=== PATIENT | female | born 1945 | race Caucasian/White ===

== ENCOUNTER → 2017-06-11 16:00 | Outpatient (CLI) | payer MEDICARE, SELFPAY | PROVIDERS: Family Provider Internal Medicine; PCP Internal Medicine; Visit Provider Internal Medicine | DX: R22.41 Localized swelling, mass and lump, right lower limb (principal); R39.15 Urgency of urination | CPT/HCPCS: 93971 ==

== ENCOUNTER → 2017-10-11 07:23 | Outpatient (CLI) | payer OTHER, SELFPAY ==
--- NOTE | 2017-10-11 07:27 | CT_ITS ---
STUDY: CT CHEST WITH CONTRAST REASON FOR EXAM: Female, 72 years old. History of lung mass. Adnexal mass. RADIATION DOSAGE (If Supplied By Facility): CTDIvol = ( 25.09 ) mGy, DLP = ( 784.65 ) mGycm TECHNIQUE: Transaxial imaging was performed following intravenous administration of 100 ml of Isovue 300 contrast material. Multiplanar coronal and sagittal images were reformatted. Individualized dose optimization techniques were used for this CT. COMPARISON: Comparison is made with prior study dated March 28, 2017. FINDINGS: Minimal degree of dependent bibasilar atelectasis. Stable 5 mm nodule in the right lower lobe adjacent to the major fissure on axial image #52. This is also evidence of a 3 mm noncalcified nodule in the lateral aspect of the right upper lobe as seen on axial image #55. Stable 6 mm nodule in the super segment of the left lower lobe as seen on axial image #39. There is no demonstrated pleural abnormality. Normal heart and pericardium. There are multiple small lymph nodes within the mediastinum, which are normal in size and morphology most compatible with reactive lymph hyperplasia. Normal hilar regions. Normal enhanced pulmonary arteries. Normal aorta arch and descending thoracic aorta. There are multi-level degenerative changes of the thoracic spine. Healed right-sided rib fractures. There is no demonstrated abnormality of the visualized upper abdomen. CT/Chest WITH Contrast IMPRESSION: Stable examination. A follow-up CT scan in 12 months is recommended for further evaluation. Minimal degree of dependent bibasilar atelectasis. Electronically Signed: Eliazar Herzog MD at 15:52 EDT Tel [phone], Service support ,
--- NOTE | 2017-10-11 07:27 | CT_ITS ---
STUDY: CT ABDOMEN AND PELVIS WITH CONTRAST REASON FOR EXAM: Female, 72 years old. History of adnexal mass. RADIATION DOSAGE (If Supplied By Facility): CTDIvol = ( 26.44 ) mGy, DLP = ( 1402.19 ) mGycm TECHNIQUE: Transaxial images were obtained from the dome of the diaphragm to the symphysis pubis with oral contrast. 100 ml of Isovue 300 contrast was administered. Sagittal and coronal images were reconstructed. Individualized dose optimization techniques were used for this CT. COMPARISON: Comparison is made with prior examination dated October 25, 2016. FINDINGS: Minimal degree of dependent bibasilar atelectasis. Coronary artery calcification. Stable 2.1 cm x 1.5 cm cyst in the left lobe of the liver. Minimally dilated central intrahepatic biliary ducts. There are surgical clips in the gallbladder fossa consistent with a prior cholecystectomy. Normal spleen. Normal pancreas. Normal bilateral adrenal glands. Normal right kidney. Normal left kidney. Normal visualized stomach. Normal small intestine. There are multiple colonic diverticula consistent with diverticulosis. The appendix is visualized and appears normal. There is scattered atherosclerotic calcification of the abdominal aorta, without a demonstrated aneurysm. Normal inferior vena cava. Normal retroperitoneum. Stable 4.7 cm x 3.7 Harvinder by 3.3 cm predominantly cystic bilobed mass in the left lower abdomen and upper pelvis. Normal urinary bladder. Normal abdominal wall. There are diffuse degenerative changes of the visualized lumbar spine. Mild anterior listhesis of L4 on L5. CT/Abdomen/Pelvis WITH Contrast IMPRESSION: Stable examination. Electronically Signed: Eliazar Herzog MD at 15:55 EDT Tel [phone], Service support ,
[2017-10-11 07:46] LABS: CREATININE FINGERSTICK 0.7 mg/dL (0.55-1.02); EGFR FINGERSTICK > 60.0000 mL/min (>60)
== END ==
PROVIDERS: Family Provider Internal Medicine; PCP Internal Medicine; Visit Provider Internal Medicine
DX: R93.5 Abnormal findings on diagnostic imaging of other abdominal regions, including retroperitoneum (principal); R93.8 Abnormal findings on diagnostic imaging of other specified body structures
CPT/HCPCS: 71260; 74177; Q9967

== ENCOUNTER → 2017-10-16 15:00 | Outpatient (CLI) | payer OTHER, SELFPAY ==
--- NOTE | 2017-10-16 15:01 | VDLE_ITS ---
Reason For Study: RLE swelling RIGHT LEFT GSV is normal. CFV is compressible, spontaneous, phasic, CFV is compressible, spontaneous, phasic, competent, and demonstrates normal competent and demonstrates normal augmentation. augmentation. FV is compressible, spontaneous, phasic, competent and demonstrates normal augmentation. POP V is compressible, spontaneous, phasic, competent and demonstrates normal augmentation. T/P Trunk is compressible. PTV is compressible. RT PerV is compressible. RT Soleus V is compressible. Procedure Exam performed in department. The exam was diagnostic. A preliminary report was called and/or faxed to Dr. Wicho Mendiola @ [phone] @ 3:20 pm. Interpretation Summary Deep veins of the right lower extremity are patent and compressible segmentally. There is no evidence of right lower extremity deep vein thrombosis. Valvular competence appears intact within the proximal deep venous system on the right . The right greater saphenous vein appears patent and compressible segmentally. Ordering Physician: Wicho Mendiola Referring Physician: Rebecca Argueta Performed By: Paige Cartagena, MARCIE, RVT
== END ==
PROVIDERS: Family Provider Internal Medicine; PCP Internal Medicine; Visit Provider Orthopaedic Surgery
DX: R22.41 Localized swelling, mass and lump, right lower limb (principal)
CPT/HCPCS: 93971

== ENCOUNTER → 2018-02-18 08:36 | Outpatient (CLI) | payer OTHER, SELFPAY | PROVIDERS: Family Provider Internal Medicine; PCP Internal Medicine; Visit Provider Internal Medicine | DX: Z78.0 Asymptomatic menopausal state (principal) | CPT/HCPCS: 77080 ==

== ENCOUNTER → 2018-05-26 11:29 | Outpatient (CLI) | payer OTHER, SELFPAY ==
--- NOTE | 2018-05-26 11:31 | RAD_ITS ---
STUDY: X-RAY - PELVIS AND HIP REASON FOR EXAM: Female, 73 years old. Posterior hip pain. TECHNIQUE: 3 views of the pelvis and hip. COMPARISON: None. FINDINGS: There is a non-specific bowel gas pattern. There are multiple calcified phleboliths. There are degenerative changes of the lower lumbar spine, with particular left lateral osteophytes at L5-S1 and hypertrophic degenerative changes of the left L4-5 facet joint. There is narrowing with cortical sclerosis of the bilateral inferior sacroiliac joints, consistent with degenerative osteoarthritic changes. Normal bilateral iliac wings and visualized sacrum. Normal bilateral superior and inferior pubic rami. Normal pubic symphysis. Normal bilateral ischial tuberosities. Normal visualized femoral head. Normal acetabulum. There is borderline articular joint space narrowing of the hip. No demonstrate osseous destructive lesion or fracture. RAD/HIP, UNI W/ Pelvis 2-3 Views IMPRESSION: 1. Borderline degenerative narrowing of the left hip joint space. 2. Degenerative changes of the lower lumbar spine and sacroiliac joints, the former more prominent on the left. Electronically Signed: Kehinde Thayer MD at 16:14 EST , Service support ,
== END ==
PROVIDERS: Family Provider Internal Medicine; PCP Internal Medicine; Referring Provider Internal Medicine; Visit Provider Internal Medicine
DX: M25.552 Pain in left hip (principal)
CPT/HCPCS: 73502

== ENCOUNTER → 2018-08-04 11:04 | Outpatient (CLI) | payer OTHER, SELFPAY ==
--- NOTE | 2018-08-04 11:06 | BI_ITS ---
MAMMOGRAPHY - BILATERAL SCREENING REASON FOR EXAM: Female, 73 years old. Routine annual screening examination. PERTINENT HISTORY: Non-contributory. TECHNIQUE: Digital bilateral breast bree (3D mammographic acquisition) in the CC and MLO projections. 2-D mediolateral oblique (MLO) and craniocaudad (CC) views of both breasts were obtained. CAD: Full Field Digital Mammography with Computer Added Detection was performed. COMPARISON: Comparison is made with prior study dated January 29, 2018 and July 12, 2016. FINDINGS: Breast Composition: There are scattered areas of fibroglandular density. There are no dominant masses or suspicious calcifications. Stable benign-appearing bilateral axillary lymph nodes. No other significant abnormalities are identified. There has been no significant change since the prior study. BI/SCREENING MAMM (CAD), BILAT IMPRESSION: Stable bilateral screening mammogram. Yearly follow-up mammogram recommended. (A) ASSESSMENT CATEGORY: BIRADS Category 2: Benign. A letter regarding these results will be sent to the patient by the facility within 30 days. Approximately 10% of breast cancers are not detected by mammography. A normal mammogram should not delay biopsy of a clinically suspicious abnormality. [id number] Electronically Signed: Eliazar Herzog MD at 9:37 EST , Service support ,
== END ==
PROVIDERS: Family Provider Internal Medicine; PCP Internal Medicine; Referring Provider Internal Medicine; Visit Provider Internal Medicine
DX: Z12.31 Encounter for screening mammogram for malignant neoplasm of breast (principal)
CPT/HCPCS: 77063; 77067

== ENCOUNTER → 2019-04-09 | Outpatient (CLI) | payer OTHER, SELFPAY ==
[2019-03-04 06:25] VITALS: BMI 41.1
== END | disposition home or self-care (01) ==
LOC: SL 20:10
PROVIDERS: Family Provider Internal Medicine; PCP Internal Medicine; Referring Provider Internal Medicine Critical Care Medicine; Visit Provider Internal Medicine Critical Care Medicine
DX: G47.33 Obstructive sleep apnea (adult) (pediatric) (principal)
CPT/HCPCS: 95811

== ENCOUNTER → 2019-04-27 | Outpatient (CLI) | payer OTHER, SELFPAY ==
[2019-03-04 06:25] VITALS: BMI 41.1
--- NOTE | 2019-04-27 14:51 | CT_ITS ---
STUDY: CT CHEST WITHOUT CONTRAST REASON FOR EXAM: Female, 74 years old. Lung nodules. RADIATION DOSAGE (If Supplied By Facility): CTDIvol = ( 17.27 ) mGy, DLP = ( 565.34 ) mGycm TECHNIQUE: Transaxial imaging was performed without the administration of intravenous contrast material. Individualized dose optimization techniques were used for this CT. COMPARISON: CT chest October 11, 2017 FINDINGS: 5 mm nodule right lower lobe image #52 stable 3 mm stable nodule right upper lobe image #54. Stable 6 mm nodule left lower lobe image #40. The lungs are otherwise normal. There is no demonstrated pleural abnormality. Normal heart and pericardium. Calcific coronary artery disease. Normal mediastinum. Normal hilar regions. Normal unenhanced pulmonary arteries. Normal aorta arch and descending thoracic aorta. Normal osseous structures. There is no demonstrated abnormality of the visualized upper abdomen. CT/Chest without Contrast IMPRESSION: Multiple stable pulmonary nodules. Coronary artery disease. Electronically Signed: Lion Diamond MD at 16:54 EDT , Service support ,
== END | disposition home or self-care (01) ==
LOC: CT 14:50
PROVIDERS: Family Provider Internal Medicine; PCP Internal Medicine; Referring Provider Internal Medicine; Visit Provider Internal Medicine
DX: R91.8 Other nonspecific abnormal finding of lung field (principal)
CPT/HCPCS: 71250

== ENCOUNTER → 2019-08-18 | Outpatient (CLI) | payer MEDICARE, SELFPAY ==
[2019-03-04 06:25] VITALS: BMI 41.1
--- NOTE | 2019-08-18 14:36 | BI_ITS ---
MAMMOGRAPHY - BILATERAL SCREENING REASON FOR EXAM: Female, 74 years old. Routine annual screening examination. PERTINENT HISTORY: Non-contributory. TECHNIQUE: Digital bilateral breast rod (3D mammographic acquisition) in the CC and MLO projections. 2-D mediolateral oblique (MLO) and craniocaudad (CC) views of both breasts were obtained. CAD: Full Field Digital Mammography with Computer Added Detection was performed. COMPARISON: Comparison is made with prior examination dated July 27, 2018 and August 01, 2017. FINDINGS: Breast Composition: There are scattered areas of fibroglandular density. There are no dominant masses or suspicious calcifications. No other significant abnormalities are identified. There has been no significant change since the prior study. BI/SCREEN MAMM (CAD) W/ROD BILAT IMPRESSION: Stable bilateral screening mammogram. Yearly follow-up mammogram recommended. (A) ASSESSMENT CATEGORY: BIRADS Category 1: Negative. A letter regarding these results will be sent to the patient by the facility within 30 days. Approximately 10% of breast cancers are not detected by mammography. A normal mammogram should not delay biopsy of a clinically suspicious abnormality. [id number] Electronically Signed: Eliazar Herzog, at 15:22 EST , Service support ,
== END | disposition home or self-care (01) ==
LOC: OPBI 14:20
PROVIDERS: PCP Internal Medicine; Referring Provider Internal Medicine; Visit Provider Internal Medicine
DX: Z12.31 Encounter for screening mammogram for malignant neoplasm of breast (principal)
CPT/HCPCS: 77063; 77067

== ENCOUNTER → 2020-01-07 | Outpatient (CLI) | payer MEDICARE, SELFPAY ==
[2019-03-04 06:25] VITALS: BMI 41.1
--- NOTE | 2020-01-07 12:50 | CT_ITS ---
STUDY: CT CHEST WITHOUT CONTRAST REASON FOR EXAM: Female, 74 years old. LUNG NODULE FOLLOW UP RADIATION DOSAGE (If Supplied By Facility): CTDIvol = ( 17.31 ) mGy, DLP = ( 601.15 ) mGycm TECHNIQUE: Transaxial imaging was performed without the administration of intravenous contrast material. Multiplanar coronal and sagittal images were reformatted. Individualized dose optimization techniques were used for this CT. COMPARISON: Comparison is made with prior examination dated April 27, 2019. FINDINGS: Stable 5 mm noncalcified nodule in the right lower lobe abutting the major fissure as seen on axial image #57. Stable 6 mm nodule in the left lower lobe. There is no demonstrated pleural abnormality. There are calcifications of the coronary arteries. There are multiple small lymph nodes within the mediastinum, which are normal in size and morphology most compatible with reactive lymph hyperplasia. Normal hilar regions. Normal unenhanced pulmonary arteries. There is atherosclerotic calcification of the aortic arch with tortuosity and elongation of the aortic arch and descending thoracic aorta. There are multi-level degenerative changes of the thoracic spine. There is no demonstrated abnormality of the visualized upper abdomen. CT/Chest without Contrast IMPRESSION: Stable examination. Electronically Signed: Eliazar Herzog, at 13:14 EDT , Service support ,
== END | disposition home or self-care (01) ==
PROVIDERS: PCP Internal Medicine; Referring Provider Internal Medicine; Visit Provider Internal Medicine
DX: R93.89 Abnormal findings on diagnostic imaging of other specified body structures (principal)
CPT/HCPCS: 71250

== ENCOUNTER → 2020-02-09 | Outpatient (CLI) | payer MEDICARE, SELFPAY ==
[2019-03-04 06:25] VITALS: BMI 41.1
--- NOTE | 2020-02-09 16:45 | RAD_ITS ---
STUDY: X-RAY - LEFT FOOT CLINICAL: Female, 75 years old. Pain in the left foot since DECEMBER. TECHNIQUE: 3 view(s) of the foot. COMPARISON: None. FINDINGS: There is a metallic plate and screws along the lateral aspect of the distal fibula. There is a screw transfixing the medial malleolus. There is a plantar calcaneal spur. Normal talus and tarsal bones. Arthrosis of the visualized subtalar, talonavicular, calcaneocuboid, tarsal and tarsometatarsal articulations. Normal metatarsi. There is degenerative arthrosis of the metatarsophalangeal joint of the hallux . Normal tibial and fibular sesamoid bones. Normal interphalangeal joint of the great toe. Normal phalanges of the great toe. Normal second through fifth metatarsophalangeal joints. Elbow arthrosis of interphalangeal joints of the lesser toes. Normal phalanges of the lesser toes. The soft tissue structures are unremarkable. RAD/Foot min 3 Views IMPRESSION: 1. Surgical changes of the ankle. 2. Degenerative changes of the foot without acute fracture or dislocation. Electronically Signed: Josiah Medrano DO at 20:29 EDT Tel [phone], Service support ,
== END | disposition home or self-care (01) ==
LOC: MTRAD 16:43
PROVIDERS: PCP Internal Medicine; Referring Provider Internal Medicine; Visit Provider Internal Medicine
DX: M79.672 Pain in left foot (principal)
CPT/HCPCS: 73630

== ENCOUNTER → 2020-02-23 | Outpatient (CLI) | payer MEDICARE, SELFPAY ==
[2019-03-04 06:25] VITALS: BMI 41.1
--- NOTE | 2020-02-23 12:25 | BD_ITS ---
STUDY: DUAL ENERGY X-RAY ABSORPTIOMETRY / DXA REASON FOR EXAM: Female, 75 years old. Age of anyi 49. Pat is 216.2# and 62 and quot; a loss of 3 and quot;. Past hx of using an HRT a long time ago for only about 1 year. Takes a multi-vit off and on. Exercises a lot. Hx of a left ankle fx. Mother has osteo. TECHNIQUE: Bone Mineral Density (BMD) measurements of lumbar spine and bilateral hips were obtained. COMPARISON: Comparison is made with prior examination in 02/18/2018. FINDINGS: Lumbar Spine (L1-L4): g/cm2 (1.375) / T-score (1.5) / Z-score (3.2) Findings are suggestive of normal bone density with a low fracture risk. Left Femur Total: g/cm2 (1.008) / T-score (0.0) / Z-score (1.8) Left Femoral Neck: g/cm2 (0.829) / T-score (-1.5) / Z-score (0.5) Right Femur Total: g/cm2 (0.968) / T-score (-0.3) / Z-score (1.5) Right Femoral Neck: g/cm2 (0.871) / T-score (-1.2) / Z-score (0.8) The T-Scores on the most recent prior examination were: Lumbar Spine (L1-L4): There has been improvement of bone density since the previous examination. Left Femur Total: which represents a worsening of 0.7%. Right Femur Total: which represents a worsening of 0.3%. BD/Dexa Bone Density Study IMPRESSION: The patient is considered osteopenic as outlined below according to World Moncho Organization (WHO) criteria with a low fracture risk. There has been improvement of bone density since the previous examination. Reference Information: The T-score is the number of standard deviations above or below the standard which is normal for young adults at their peak bone mineral density. The World Health Organization (WHO) interprets the T-scores as follows: Above -1 Normal bone density Between -1 and -2.5 Osteopenia Equal to / or below -2.5 Osteoporosis As a practical clinical guideline, osteopenia may be graded as follows: Mild -1 through -1.5 Moderate -1.6 through -2.0 Severe -2.1 through -2.4 The Z-score is the number of standard deviations above or below age-matched controls. A Z-score of less than -1.5 would be considered abnormal. References: 1. NIH Osteoporosis and Related Bone Diseases http://www.osteo.org 2. International Society for Clinical Densitometry http://www.iscd.org 3. National Osteoporosis Foundation http://www.nof.org Electronically Signed: Eliazar Herzog, at 12:48 EDT , Service support ,
== END | disposition home or self-care (01) ==
LOC: OPBD 12:23
PROVIDERS: PCP Internal Medicine; Referring Provider Internal Medicine; Visit Provider Internal Medicine
DX: Z78.0 Asymptomatic menopausal state (principal)
CPT/HCPCS: 77080

== ENCOUNTER → 2020-05-02 | Outpatient (CLI) | payer MEDICARE, SELFPAY ==
[2019-03-04 06:25] VITALS: BMI 41.1
--- NOTE | 2020-05-02 16:18 | RAD_ITS ---
STUDY: X-RAY - LEFT TIBIA AND FIBULA REASON FOR EXAM: Female, 75 years old. Leg pain TECHNIQUE: 3 view(s) of the tibia and fibula were obtained. COMPARISON: None. FINDINGS: There is a side plate and cortical screws transfixing the distal fibula. There is a cortical screw transfixing the distal tibia and the medial malleolus. There is degenerative change in the medial lateral compartments. There is soft tissue edema of the ankle. RAD/Tibia & Fibula 2 Views IMPRESSION: No specific reduction internal fixation of the left ankle with soft tissue mild edema. Electronically Signed: Maryann Cervantes MD at 7:02 EDT Tel , Service support ,
--- NOTE | 2020-05-02 16:18 | RAD_ITS ---
STUDY: X-RAY - LEFT KNEE REASON FOR EXAM: Female, 75 years old. Leg pain TECHNIQUE: 4 view(s) of the knee. COMPARISON: None. FINDINGS: Normal visualized distal femur. Findings suggestive of a prior resection of the anterior tibial tubercle. Normal proximal tibiofibular articulation. There is severe degenerative arthrosis of the medial femorotibial compartment with severe joint space narrowing. Normal lateral femorotibial compartment. There is moderate degenerative arthrosis of the patellofemoral articulation. 3 well-defined bony densities are seen overlying the popliteal fossa. 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 The soft tissue structures are unremarkable. RAD/Knee 4 or More Views IMPRESSION: Degenerative arthrosis. Electronically Signed: Eliazar Herzog, at 9:40 EDT , Service support ,
== END | disposition home or self-care (01) ==
LOC: MTRAD 16:16
PROVIDERS: PCP Internal Medicine; Referring Provider Internal Medicine; Visit Provider Internal Medicine
DX: M79.606 Pain in leg, unspecified (principal)
CPT/HCPCS: 73564; 73590

== ENCOUNTER → 2020-05-03 | Outpatient (CLI) | payer MEDICARE, SELFPAY ==
[2019-03-04 06:25] VITALS: BMI 41.1
--- NOTE | 2020-05-03 09:48 | VDLE_ITS ---
Reason For Study: swelling Procedure LEFT This is a venous duplex using B-mode, color GSV is normal. flow and spectral Doppler. CFV is compressible, spontaneous, phasic, Exam performed in department. competent, and demonstrates normal The exam was abbreviated due to the COVID 19 augmentation. protocol. FV is compressible, spontaneous, phasic, The exam was diagnostic. competent and demonstrates normal A preliminary report was called and/or faxed augmentation. to Dr. Argueta. POP V is compressible, spontaneous, phasic, competent and demonstrates normal augmentation. T/P Trunk is compressible. PTV is compressible. LT PerV is compressible. Interpretation Summary Deep veins of the left lower extremity are patent and compressible segmentally. There is no evidence of left lower extremity deep vein thrombosis. Valvular competence appears intact within the proximal deep venous system on the left . The left great saphenous vein appears patent and compressible segmentally. Ordering Physician: Rebecca Argueta Performed By: Stew Lagos RVT
== END | disposition home or self-care (01) ==
PROVIDERS: PCP Internal Medicine; Referring Provider Internal Medicine; Visit Provider Internal Medicine
DX: M79.89 Other specified soft tissue disorders (principal)
CPT/HCPCS: 93971

== ENCOUNTER → 2020-12-22 15:21 | Outpatient (CLI) | payer MEDICARE, SELFPAY ==
[2019-03-04 06:25] VITALS: BMI 41.1
--- NOTE | 2020-12-22 15:24 | BI_ITS ---
MAMMOGRAPHY - BILATERAL SCREENING REASON FOR EXAM: Female, 75 years old. Routine annual screening examination. PERTINENT HISTORY: Non-contributory. TECHNIQUE: Digital bilateral breast rod (3D mammographic acquisition) in the CC and MLO projections. 2-D mediolateral oblique (MLO) and craniocaudad (CC) views of both breasts were obtained. CAD: Full Field Digital Mammography with Computer Added Detection was performed. COMPARISON: Comparison is made with prior study dated 08/18/2019 and 08/04/2018. FINDINGS: Breast Composition: There are scattered areas of fibroglandular density. There are no dominant masses or suspicious calcifications. Benign-appearing bilateral axillary lymph nodes. No other significant abnormalities are identified. There has been no significant change since the prior study. BI/SCRN MAMM (CAD)W/ROD BILAT IMPRESSION: Stable bilateral screening mammogram. Yearly follow-up mammogram recommended. (A) ASSESSMENT CATEGORY: BIRADS Category 2: Benign. A letter regarding these results will be sent to the patient by the facility within 30 days. Approximately 10% of breast cancers are not detected by mammography. A normal mammogram should not delay biopsy of a clinically suspicious abnormality. [id number] Electronically Signed: Eliazar Herzog MD at 8:10 EDT , Service support ,
== END ==
PROVIDERS: PCP Internal Medicine; Referring Provider Internal Medicine; Visit Provider Internal Medicine
DX: Z12.31 Encounter for screening mammogram for malignant neoplasm of breast (principal)
CPT/HCPCS: 77063; 77067

== ENCOUNTER 2021-07-11 10:04 | Outpatient (CLI) | payer MEDICARE, SELFPAY ==
[2021-07-11 10:22] VITALS: BP 137/76; PULSE 70; RESP 16; TEMP 36.2; O2SAT 100; BMI 36.6
[2021-07-11] MEDS: 0.9% Saline Lock 10 ML Syringe IV (10:53)
[2021-07-11 11:37] VITALS: BP 131/74; PULSE 59; RESP 16; TEMP 36.9; O2SAT 97
[2021-07-11 12:35] VITALS: BP 149/80; PULSE 64; RESP 16; TEMP 37.1; O2SAT 100
== END 2021-07-11 23:59 | disposition home or self-care (01) ==
LOC: MS3OUT 10:04 → MS3 10:05
PROVIDERS: PCP Internal Medicine; Referring Provider Nurse Practitioner Adult Health; Visit Provider Nurse Practitioner Adult Health
DX: Z23 Encounter for immunization (principal); U07.1 COVID-19
CPT/HCPCS: J7050; M0243; A4216; Q0240

== ENCOUNTER 2021-07-13 17:45 | Outpatient (CLI) | payer MEDICARE, SELFPAY ==
--- NOTE | 2021-07-13 18:00 | RAD_ITS ---
STUDY: X-RAY CHEST REASON FOR EXAM: Female, 76 years old. SOB / SOA Technologist Notes INCREASED SOB AND LOW OXYGEN LEVELS. COVID TECHNIQUE: XR Chest 2 Views COMPARISON: 12.03.24 FINDINGS: There is no demonstrated pleural abnormality. Normal size heart. Normal mediastinum and silva. Normal visualized pulmonary arteries. There is atherosclerotic calcification of the aortic arch with tortuosity. There are diffuse degenerative changes of the visualized thoracic spine. There is degenerative osteoarthritis of the bilateral shoulders. There is no demonstrated abnormality of the visualized soft tissue structures of the upper abdomen. RAD/Chest PA and Lateral IMPRESSION: There are no acute findings. Electronically Signed: Richard Maki MD at 19:45 EST , Service support ,
== END 2021-07-13 23:59 | disposition short-term general hospital (02) ==
LOC: RAD.FUTURE 17:47
PROVIDERS: PCP Internal Medicine; Referring Provider Internal Medicine; Visit Provider Internal Medicine
DX: U07.1 COVID-19 (principal)
CPT/HCPCS: 71046

== ENCOUNTER 2021-08-04 15:27 | Outpatient (CLI) | payer MEDICARE, SELFPAY ==
--- NOTE | 2021-08-04 15:56 | RAD_ITS ---
STUDY: X-RAY CHEST REASON FOR EXAM: Female, 76 years old. SOB AND LOW OXYGEN LEVELS. SOB TECHNIQUE: XR Chest 2 Views COMPARISON: 1.6 FINDINGS: There is no demonstrated pleural abnormality. Normal size heart. Normal mediastinum and silva. Normal visualized pulmonary arteries. There is atherosclerotic calcification of the aortic arch with tortuosity. There are diffuse degenerative changes of the visualized thoracic spine. There is degenerative osteoarthritis of the bilateral shoulders. There is no demonstrated abnormality of the visualized soft tissue structures of the upper abdomen. RAD/Chest PA and Lateral IMPRESSION: There are no acute findings. Electronically Signed: Richard Maki MD at 16:07 EST ,
[2021-08-04 16:05] LABS: Hematocrit 32.9 % (37-47); Hemoglobin 10.9 g/dL (12.0-15.0); Mean Corp Hgb Conc 33.1 g/dL (32-36); Mean Corpuscular Hgb 29.5 pg (27.0-32.0); Mean Corpuscular Volume 88.9 fL (81-99); Mean Platelet Vol. 10.5 fl (6.2-12.0); Platelet Count 114 K/mm3 (150-450); RBC Distribution Width CV 13.6 % (11.6-14.6); RBC Distribution Width SD 44.5 fl (35.1-43.9); White Blood Count 3.8 K/mm3 (4.4-11.0)
[2021-08-04 16:26] LABS: AST(SGOT) 23 U/L (15-37); Alanine Aminotransfer ALT/SGPT 30 U/L (13-56); Albumin, Serum 3.4 g/dL (3.2-5.0); Alkaline Phosphatase 60 U/L (45-117); Anion Gap 6 (5-15); BUN 16 mg/dL (7-18); BUN/Creat Ratio 17.3 RATIO (10-20); Calcium,Total 8.6 mg/dL (8.5-10.1); Chloride 104 mmol/L (98-107); Creatinine, Serum 0.92 mg/dL (0.55-1.02); EST Glomerular Filtration Rate 62 mL/min (>60); Est Glom Filt Rate - Afr Amer 76 mL/min (>60); Globulin 3.3 g/dL (2.2-4.2); Glucose 90 mg/dL (74-106); Potassium 3.8 mmol/L (3.5-5.1); Protein, Total 6.7 g/dL (6.4-8.2); Sodium Level 132 mmol/L (136-145)
[2021-08-04 17:19] LABS: D-Dimer Quantitative (DVT/PE) 1.44 FEU/ug/m (0.27-0.49)
== END 2021-08-04 23:59 | disposition short-term general hospital (02) ==
LOC: LAB 15:29
PROVIDERS: PCP Internal Medicine; Visit Provider Internal Medicine
DX: R06.02 Shortness of breath (principal)
CPT/HCPCS: 36415; 71046; 80053; 85027; 85379

== ENCOUNTER 2021-08-04 19:10 | Emergency (ER) | payer MEDICARE, SELFPAY ==
[2021-08-04 19:10] VITALS: BP 172/77; PULSE 78; RESP 18; TEMP 36.3; O2SAT 100; BMI 36.3
--- NOTE | 2021-08-04 19:20 | EKG12_ITS ---
Test Reason : DYSRHYTHMIA Blood Pressure : / mmHG Vent. Rate : 070 BPM Atrial Rate : 070 BPM P-R Int : 222 ms QRS Dur : 094 ms QT Int : 412 ms P-R-T Axes : 033 -01 021 degrees QTc Int : 444 ms Sinus rhythm with 1st degree A-V block Otherwise normal ECG Confirmed by KENZIE PENA, ADOLFO ([id number]), newspaper editor managing SURINDER JARVIS ([id number]) on 08/07/2021 10:44:35 AM Referred By: NIMA Confirmed By:ADOLFO ESPINO MD
--- NOTE | 2021-08-04 20:13 | CT_ITS ---
EXAM: CT ANGIOGRAPHY CHEST WITHOUT AND WITH INTRAVENOUS CONTRAST CLINICAL INDICATION: dyspnea DYSPNEA X 3WEEKS, IN OFFICE 97% WHILE WALKING, COVID AT [facility], ELEVATED D-DIMER TECHNIQUE: Helically acquired angiography images were obtained of the chest without and with intravenous contrast. This CT exam was performed using one or more of the following dose reduction techniques: automated exposure control, adjustment of the mA and/or kV according to patient size, and/or use of iterative reconstruction technique. This report was created using [employer] report generation technology. MIP reconstructed images were created and reviewed. CONTRAST: IV 100mL Isovue-370 COMPARISON: 7.2.20 FINDINGS: PULMONARY ARTERIES: No demonstrated pulmonary embolism or arterial dissection. AORTA: There is atherosclerotic calcification of the aortic arch with tortuosity and elongation of the aortic arch and descending thoracic aorta. Normal in caliber. No evidence of dissection. GREAT VESSELS OF AORTIC ARCH: Unremarkable. Normal in caliber. No evidence of dissection. LUNGS AND PLEURAL SPACES: There is minimal groundglass infiltrate of the medial right upper lobe and medial left upper lobe. Patchy infiltrates in the periphery of the lung pena. This suggests a Bilateral pneumonia. 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 No mass. HEART: There are calcifications of the coronary arteries. No pericardial effusion. No signs of right heart strain, ratio of right ventricle to left ventricle measures less than 1. MEDIASTINUM: Unremarkable. No mediastinal or hilar adenopathy. Esophagus is unremarkable. No hiatal hernia. THYROID: Unremarkable. No thyroid lesions. BONES/JOINTS: There are degenerative findings of the thoracic spine. No suspicious lytic or blastic abnormality. LIVER: Stable hypodensity in the right lobe of the liver. GALLBLADDER AND BILE DUCTS: The gallbladder is surgically absent. CT/CTA Chest W/WO Contrast IMPRESSION: 1. No demonstrated pulmonary embolism or arterial dissection. 2. There is minimal groundglass infiltrate of the medial right upper lobe and medial left upper lobe. Patchy infiltrates in the periphery of the lung pena. This suggests a Bilateral pneumonia. 3. 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 Electronically Signed: Richard Maki MD at 20:57 EST ,
--- NOTE | 2021-08-04 20:22 | ED.VIS.DYS ---
HPI History of Present Illness Chief Complaint: Shortness of Breath Narrative Narrative: 76-year-old female presenting with shortness of breath. She states she has been short of breath since she had COVID-19 around [place]. She has been checking her home pulse ox at home and states that it is dropping to the 70s and low 80s with ambulation. She states her shortness of breath is worse when she climbs the stairs between levels of her house. She has not checked her oxygen on the stairs. She not complaining of chest pain. Patient has been seen by her primary care physician who did blood work today. She had an elevated D-dimer was sent to the emergency room. Apparently she was walked in office today and her oxygen did drop to 77 in office and when she stopped walking this immediately rebounded. Her primary care physician did set her up for home O2 which apparently is 2 L. She states this is an oxygen concentrator and she is not sure how high will go up to. She states she will have her check. Patient states that after she left the office today she was sent for blood work and then she was sent back to the ER for a CAT scan of her chest due to elevated D-dimer. Her is the one who received the home concentrator concentrator. [facility] Medical History Abnormal CT scan, chest Adnexal mass Arthritis Chronic depression Diverticulosis of intestine without perforation or abscess without bleeding DVT (deep venous thrombosis) GERD (gastroesophageal reflux disease) Hyperlipidemia IBS (irritable bowel syndrome) Osteopenia Restless leg syndrome Home Medications mirtazapine 1 tab PO QHS 06/15/17 [History Last Taken Unknown] pantoprazole 40 mg PO BID 06/15/17 [History Last Taken Unknown] pramipexole 0.5 mg PO QHS 06/15/17 [History Last Taken Unknown] atorvastatin 10 mg tablet 10 mg PO DAILY 03/04/19 [History Last Taken Unknown] trazodone 100 mg tablet 100 mg PO QHS 03/04/19 [History Last Taken Unknown] Allergy/AdvReac Type Severity Reaction Status Date / Time citalopram [From Celexa] Allergy Intermediate Nausea Verified 07/10/21 16:28 venlafaxine [From Effexor] Allergy Itching Verified 07/10/21 16:28 bupropion [From Wellbutrin] AdvReac Nausea Verified 07/10/21 16:28 Family History Mother CVA (cerebral vascular accident) Father Cancer prostate Brother Cancer lung Sister Cancer cervical Surgical History History of tonsillectomy Loose left total knee arthroplasty Loose right total knee arthroplasty Social History household members: spouse housing: house current occupational status: retired Smoking Status: Never smoker alcohol intake: never substance use type: does not use ROS ROS ED Constitutional Constitutional ED: Denies chills or fever(s) Eyes Eyes: Denies blurry vision or diplopia ENT ENT ED: Denies rhinorrhea or sore throat Cardiovascular Cardiovascular: Reports palpitations; Denies chest pain Respiratory/Chest Respiratory/Chest: Reports dyspnea and dyspnea on exertion Gastrointestinal Gastrointestinal: Denies abdominal pain, nausea or vomiting Genitourinary Genitourinary ED: Denies dysuria or hematuria Musculoskeletal Musculoskeletal: Denies arthralgias or myalgias Integumentary Denies Abrasions or rash Neurologic Neurologic: Denies headache(s) or paresthesias Psychiatric Psychiatric: Denies anxiety or depression EXAM Physical Exam Const Vital Signs: 08/04/21 19:10 08/04/21 20:56 08/04/21 21:17 Temperature 97.4 F L Temperature Source Temporal Pulse Rate 78 86 Respiratory Rate 18 16 Respiratory Effort Non-Labored Respiratory Depth Normal Respiratory Pattern Normal Blood Pressure 172/77 H 131/77 H Blood Pressure Mean 108 95 Pulse Ox 100 99 Oxygen Delivery Method Room Air Room Air Room Air Positive well nourished General Appearance ED: NAD; Negative for pallor HEENT Reports moist mucous membranes atraumatic Eyes PERRL and EOMs intact bilaterally Resp normal respiratory effort and clear to auscultation bilaterally Cardio regular rate and regular rhythm Extremity normal to inspection General Extremety ED: Negative for edema or tenderness General Extremity: Negative for edema Neuro oriented x3, CN's II-XII intact bilaterally and no sensory deficits noted Sensorium / Orientation: alert Motor Exam: strength 5/5 throughout Psych mental status grossly normal Thought Process: normal thought process Skin General Skin Exam: Negative for jaundice or pallor MDM MDM MDM Narrative Medical decision making narrative: CBC shows that she is pancytopenic with a hemoglobin of 10.9 which was previously 10.2, hematocrit 32.9 which is previously 13.1, white blood cell count of 6.1 which was previously 3.8. Platelet count of 114 which was previously 223. Unfortunately I do not have any comparison lab work from anything more current than 2017. D-dimer was elevated at 1.44. Sodium 132, potassium 3.8, chloride 104, CO2 22, BUN 16, creatinine 0.92, glucose 90 with normal anion gap. LFTs are all within normal limits. EKG on my interpretation shows a sinus rhythm with a ventricular of 70 bpm with first-degree AV block with MI interval of 222 ms. QRS duration 94 ms, QTC 444 ms. Will obtain a troponin to assess for heart strain. He had a chest x-ray earlier today which on my interpretation shows no acute cardiopulmonary process and the radiologist does agree. I will also obtain a CTA of the chest to rule out PE. Patient was apparently ambulated without oxygen today and desatted to 77% on room air and immediately rebounded. She was not assessed on oxygen while walking to determine what her oxygen needs are. We will ambulate her without oxygen, and with oxygen supplementation to ensure this is adequate. Patient was ambulated without oxygen and went a 2-300 feet up and down the hallways briskly. After she was ambulated she had a short drop in her oxygen 87% and immediately came back up. She was mildly dyspneic. Her high-sensitivity troponin is 9 and she is not had any chest pain. CTA of the chest does show some minimal groundglass infiltrate of the medial right upper lobe and medial left upper lobe as well as patchy infiltrates in the periphery lung pena. It also does identify a Bochdalek hernia. She has no history of this and I do not believe this needs to be emergently evaluated. She is counseled on the findings. Patient has oxygen set up for her at home and I believe she will do well on the 2 L as needed. Impression: 1. Hypoxic respiratory failure 2 History of COVID-19 Lab Data Attestation: I reviewed the patient's lab results. Labs: Laboratory Results - last 24 hr 08/04/21 20:16 Troponin I High Sens 9 Radiography Diagnostic Testing: Clinical Impression(s) from Imaging Studies Chest CTA 08/04/21 20:13 IMPRESSION: 1. No demonstrated pulmonary embolism or arterial dissection. 2. There is minimal groundglass infiltrate of the medial right upper lobe and medial left upper lobe. Patchy infiltrates in the periphery of the lung pena. This suggests a Bilateral pneumonia. 3. 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 Electronically Signed: Richard Maki MD at 20:57 EST , Discharge Plan Triage Chief Complaint: Shortness of Breath ED Provider: Pernell Cunningham Dx/Rx/DC Orders Instructions: ED Dyspnea Prescriptions: No Action trazodone 100 mg tablet 100 mg PO QHS RF: 0 atorvastatin 10 mg tablet 10 mg PO DAILY RF: 0 mirtazapine 30 MG tablet 1 tab PO QHS RF: 0 pantoprazole 40 MG tablet 40 mg PO BID RF: 0 pramipexole 0.25 MG tablet 0.5 mg PO QHS RF: 0 Primary Care Provider: Rebecca Argueta Referrals: Rebecca Argueta, [Primary Care Provider] - Disposition Disposition: Home, Self Care
[2021-08-04 20:41] LABS: Troponin-I HS 9 pg/mL (3.0-54.0)
[2021-08-04 20:52] VITALS: O2SAT 97
[2021-08-04 20:56] VITALS: BP 131/77; PULSE 86; RESP 16; O2SAT 99
[2021-08-04 21:17] VITALS: O2SAT 98
--- NOTE | 2021-08-04 21:19 | ED.RN ---
AMBULATING PULSE OX TEST PEFORMED. STARTING POX ON RA = 98%. PT WAS ABLE TO AMBULATE SEVERAL LAPS DOWN THE BACK MEDINA ON RA & MAINTAIN 02 SATS 92%. BY THE END OF THE 6TH LAP RA 02 SATS DROPPED DOWN TO 86%. WHEN PLACED ON 2L N/C 02 SATS REBOUNDED QUICKLY TO 95%. PT REPORTS SOME MILD DYSPNEA. NO COUGH NOTED. ONCE BACK TO ROOM & IN BED, PT'S PULSE OX REMAINED AT 95% ON RA. PT REPORTS SHE PARTICIPATES REGULARLY IN CROSS FIT EXERCISE.
[2021-08-04 21:54] VITALS: BP 131/77
== END 2021-08-04 21:56 | disposition home or self-care (01) ==
PROVIDERS: Emergency Provider Student in an Organized Health Care Education/Training Program; PCP Internal Medicine; Visit Provider Student in an Organized Health Care Education/Training Program
DX: J96.91 Respiratory failure, unspecified with hypoxia (principal); E78.5 Hyperlipidemia, unspecified; K21.9 Gastro-esophageal reflux disease without esophagitis; Z86.16 Personal history of COVID-19; Z86.718 Personal history of other venous thrombosis and embolism; Z79.899 Other long term (current) drug therapy
CPT/HCPCS: 36415; 71046; 71275; 80053; 84484; 85027; 85379; 93005; 99285; Q9967; A4216

== ENCOUNTER 2021-11-16 00:26 | Emergency (ER) | payer MEDICARE, SELFPAY ==
[2021-11-16 00:27] VITALS: BP 133/74; PULSE 87; RESP 18; TEMP 37.1; O2SAT 98; BMI 37.8
--- NOTE | 2021-11-16 00:39 | EDS_ITS ---
HPI History of Present Illness Chief Complaint: Fever Informant: patient Onset/Context/Timing Onset: Today Context: Sudden Onset Timing: Continuous Quality: Shaking chills Location: Generalized Worsened by: Nothing Relieved by: Warm blankets and warm pajamas Narrative Narrative: Patient presents with chills that began tonight. Patient states that it began rather suddenly. Patient states they have been constant. Patient checked her temperature at home and it was up to 101.2. Patient states she was having some shaking with her chills. Patient states her chills improved with warm blankets and warm pajamas. Patient admits to some shortness of breath and cough. Patient also states she has an ulcer on her right lower leg. Patient is on cefdinir for that. Patient admits to some nausea and dry heaves. Patient also admits to mild headache. [facility] Medical History Abnormal CT scan, chest Adnexal mass Arthritis Chronic depression COVID-19 Diverticulosis of intestine without perforation or abscess without bleeding DVT (deep venous thrombosis) GERD (gastroesophageal reflux disease) Hyperlipidemia IBS (irritable bowel syndrome) Osteopenia Restless leg syndrome Home Medications mirtazapine 1 tab PO QHS 06/15/17 [History Last Taken Unknown] pantoprazole 40 mg PO BID 06/15/17 [History Last Taken Unknown] pramipexole 0.5 mg PO QHS 06/15/17 [History Last Taken Unknown] atorvastatin 10 mg tablet 10 mg PO DAILY 03/04/19 [History Last Taken Unknown] trazodone 100 mg tablet 100 mg PO QHS 03/04/19 [History Last Taken Unknown] amoxicillin-pot clavulanate 875 mg PO Q12H #20 tablet 11/16/21 [Rx Last Taken Unknown] sulfamethoxazole-trimethoprim 1 tab PO BID #20 tablet 11/16/21 [Rx Last Taken Unknown] Allergy/AdvReac Type Severity Reaction Status Date / Time citalopram [From Celexa] Allergy Intermediate Nausea Verified 11/16/21 00:34 venlafaxine [From Effexor] Allergy Itching Verified 11/16/21 00:34 bupropion [From Wellbutrin] AdvReac Nausea Verified 11/16/21 00:34 Family History Mother CVA (cerebral vascular accident) Father Cancer prostate Brother Cancer lung Sister Cancer cervical Surgical History History of tonsillectomy Loose left total knee arthroplasty Loose right total knee arthroplasty Social History household members: spouse housing: house current occupational status: retired Smoking Status: Never smoker alcohol intake: never substance use type: does not use ROS ROS ED Constitutional Constitutional ED: Reports chills and fever(s) Eyes Eyes: Denies blurry vision or change in vision ENT ENT ED: Reports rhinorrhea; Denies sore throat Cardiovascular Cardiovascular: Denies chest pain or palpitations Respiratory/Chest Respiratory/Chest: Reports cough and dyspnea Gastrointestinal Gastrointestinal: Reports nausea and vomiting Genitourinary Genitourinary ED: Denies dysuria or hematuria Musculoskeletal Musculoskeletal: Denies back pain or neck pain Integumentary Denies abscess or rash Neurologic Neurologic: Reports headache(s); Denies weakness Allergic/Immunologic Allergic/Immunologic ED: Denies mouth swelling or urticaria EXAM Physical Exam Const Vital Signs: 11/16/21 00:27 11/16/21 00:32 Temperature 98.8 F Temperature Source Oral Pulse Rate 87 Respiratory Rate 18 Respiratory Effort Normal Non-Labored Respiratory Pattern Normal Blood Pressure 133/74 H Blood Pressure Mean 93 Pulse Ox 98 Oxygen Delivery Method Nasal Cannula Oxygen Flow Rate (L/min) 3 Positive well nourished and well developed General Appearance ED: well developed HEENT Reports moist mucous membranes Neck supple and no JVD Resp normal respiratory effort and clear to auscultation bilaterally Cardio regular rate, regular rhythm and no murmurs GI normal to inspection, nondistended, normoactive bowel sounds and non-tender Palpation: soft Neuro oriented x3, CN's II-XII intact bilaterally and no sensory deficits noted Sensorium / Orientation: alert Motor Exam: strength 5/5 throughout Psych mental status grossly normal Skin no rashes or lesions noted MDM MDM MDM Narrative Medical decision making narrative: CBC shows a slight leukocytosis of 11.3. Comprehensive metabolic profile was within normal limits. Lactate was normal. Urinalysis does not show any evidence of urinary tract infection. COVID-19 rapid antigen was obtained and was negative. Influenza A and influenza B swabs were obtained and were negative. Portable 1 view chest x-ray was obtained. On my interpretation, lung pena are clear. There is normal cardiac silhouette. Bony thorax is normal. There is no acute process noted. Radiologist also interpreted the x-ray and agrees. Patient was advised of her findings. Patient was instructed to stop taking the cefdinir. Patient was given prescriptions for Augmentin and Bactrim. Patient was instructed to follow-up with her primary care physician in 5 to 7 days. Patient understood and was agreeable with the plan. All questions were answered. Lab Data Labs: Laboratory Results - last 24 hr 11/16/21 11/16/21 11/16/21 00:52 00:52 00:52 WBC 11.3 H RBC 3.20 L Hgb 9.8 L Hct 29.0 L MCV 90.6 MCH 30.6 MCHC 33.8 RDW Std Deviation 45.3 H RDW Coeff of Leobardo 13.5 Plt Count 155 MPV 10.4 Immature Gran % (Auto) 0.300 Neut % (Auto) 89.6 H Lymph % (Auto) 5.2 L [place] % (Auto) 4.4 Eos % (Auto) 0.4 Baso % (Auto) 0.1 Absolute Neuts (auto) 10.1 H Absolute Lymphs (auto) 0.59 L Nucleated RBC % 0 Differential Comment SCANNED Sodium 136 Potassium 4.2 Chloride 107 Carbon Dioxide 24.0 Anion Gap 5 BUN 18 Creatinine 0.92 Estim Creat Clear Calc 44.22 Est GFR (MDRD) Af Amer 76 Est GFR (MDRD) Non-Af 62 BUN/Creatinine Ratio 19.5 Glucose 140 H Lactic Acid 1.7 Calcium 8.9 Total Bilirubin 0.40 AST 19 ALT 20 Alkaline Phosphatase 63 Total Protein 6.8 Albumin 3.4 Globulin 3.4 Albumin/Globulin Ratio 1.0 Urine Color Urine Clarity Urine pH Ur Specific [place] Urine Protein Urine Glucose (UA) Urine Ketones Urine Occult Blood Urine Nitrite Urine Bilirubin Urine Urobilinogen Ur Leukocyte Esterase Urine RBC Urine WBC Ur Squamous Epith Cells Urine Bacteria Urine Mucus 11/16/21 01:35 WBC RBC Hgb Hct MCV MCH MCHC RDW Std Deviation RDW Coeff of Leobardo Plt Count MPV Immature Gran % (Auto) Neut % (Auto) Lymph % (Auto) [place] % (Auto) Eos % (Auto) Baso % (Auto) Absolute Neuts (auto) Absolute Lymphs (auto) Nucleated RBC % Differential Comment Sodium Potassium Chloride Carbon Dioxide Anion Gap BUN Creatinine Estim Creat Clear Calc Est GFR (MDRD) Af Amer Est GFR (MDRD) Non-Af BUN/Creatinine Ratio Glucose Lactic Acid Calcium Total Bilirubin AST ALT Alkaline Phosphatase Total Protein Albumin Globulin Albumin/Globulin Ratio Urine Color Yellow Urine Clarity Clear Urine pH 6.0 Ur Specific [place] 1.015 Urine Protein Negative Urine Glucose (UA) Normal Urine Ketones Negative Urine Occult Blood Negative Urine Nitrite Negative Urine Bilirubin Negative Urine Urobilinogen Normal Ur Leukocyte Esterase Negative Urine RBC 0 SEEN Urine WBC 0 SEEN Ur Squamous Epith Cells 0-5 SEEN Urine Bacteria RARE Urine Mucus RARE Radiography Diagnostic Testing: Clinical Impression(s) from Imaging Studies Chest X-Ray 11/16/21 00:43 IMPRESSION: No acute cardiopulmonary disease. Electronically Signed: Meeta Pedroza MD at 1:38 EDT , Discharge Plan Triage Chief Complaint: Fever ED Provider: Heladio Britt Dx/Rx/DC Orders Clinical Impression: Acute febrile illness, Wound of right leg Instructions: ED Cellulitis, ED Fever Control (Adult) Prescriptions: New sulfamethoxazole-trimethoprim [sulfamethoxazole-trimethoprim] 1 TABLET tablet 1 tab PO BID Qty: 20 RF: 0 amoxicillin-pot clavulanate [amoxicillin-pot clavulanate] 875 MG tablet 875 mg PO Q12H Qty: 20 RF: 0 Discontinued cefdinir 300 mg capsule 300 mg PO BID RF: 0 No Action trazodone 100 mg tablet 100 mg PO QHS RF: 0 atorvastatin 10 mg tablet 10 mg PO DAILY RF: 0 mirtazapine 30 MG tablet 1 tab PO QHS RF: 0 pantoprazole 40 MG tablet 40 mg PO BID RF: 0 pramipexole 0.25 MG tablet 0.5 mg PO QHS RF: 0 Primary Care Provider: Rebecca Argueta Referrals: Rebecca Argueta DO [Primary Care Provider] - 5-7 Days
--- NOTE | 2021-11-16 00:43 | RAD_ITS ---
STUDY: X-RAY CHEST REASON FOR EXAM: Female, 76 years old. Fever TECHNIQUE: Single AP portable view of the chest. COMPARISON: 08/28/2021. FINDINGS: The lungs are underexpanded with vascular crowding, otherwise clear. There is no demonstrated pleural abnormality. Normal size heart. Normal mediastinum and silva. Normal visualized pulmonary arteries. There is atherosclerotic calcification of the aortic arch with tortuosity. There is demineralization of the osseous structures. 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 There is no demonstrated abnormality of the visualized soft tissue structures of the upper abdomen. RAD/Chest 1 View (Portable) IMPRESSION: No acute cardiopulmonary disease. Electronically Signed: Meeta Pedroza MD at 1:38 EDT ,
[2021-11-16 01:00] LABS: Absolute Lymphocyte Count 0.59 X10^3/uL (0.83-4.51); Absolute Neutrophil Count 10.1 X10^3/uL (2.0-7.7); Basophil# 0.01 X10^3/uL; Basophil% 0.1 % (0-1); Eosinophil# 0.05 X10^3/uL; Eosinophils% 0.4 % (0-5); Hemoglobin 9.8 g/dL (12.0-15.0); Lymphocyte # 0.59 X10^3/ul (0.83-4.51); Lymphocyte % 5.2 % (19-41); Mean Corp Hgb Conc 33.8 g/dL (32-36); Mean Corpuscular Hgb 30.6 pg (27.0-32.0); Mean Corpuscular Volume 90.6 fL (81-99); Mean Platelet Vol. 10.4 fl (6.2-12.0); Monocyte% 4.4 % (0-10); NRBC Flagged by Analyzer 0 % (0-5); Neutrophil # 10.12 X10^3/uL (2.7-7.7); Neutrophil % 89.6 % (47-70); POSITIVE DIFFERENTIAL YES; Platelet Count 155 K/mm3 (150-450); RBC Distribution Width CV 13.5 % (11.6-14.6); RBC Distribution Width SD 45.3 fl (35.1-43.9); White Blood Count 11.3 K/mm3 (4.4-11.0)
[2021-11-16 01:11] LABS: Differential Indicated SCAN CRITERIA MET
[2021-11-16 01:16] LABS: AST(SGOT) 19 U/L (15-37); Alanine Aminotransfer ALT/SGPT 20 U/L (13-56); Albumin, Serum 3.4 g/dL (3.2-5.0); Alkaline Phosphatase 63 U/L (45-117); Anion Gap 5 (5-15); BUN 18 mg/dL (7-18); BUN/Creat Ratio 19.5 RATIO (10-20); Calcium,Total 8.9 mg/dL (8.5-10.1); Chloride 107 mmol/L (98-107); Creatinine, Serum 0.92 mg/dL (0.55-1.02); EST Glomerular Filtration Rate 62 mL/min (>60); Est Glom Filt Rate - Afr Amer 76 mL/min (>60); Estimated Creatinine Clearance 44.22 ml/min; Globulin 3.4 g/dL (2.2-4.2); Glucose 140 mg/dL (74-106); Potassium 4.2 mmol/L (3.5-5.1); Protein, Total 6.8 g/dL (6.4-8.2); Sodium Level 136 mmol/L (136-145)
[2021-11-16 01:22] LABS: Lactic Acid 1.7 mmol/L (0.4-1.9)
[2021-11-16 01:38] LABS: Differential Comment SCANNED
[2021-11-16 01:40] LABS: Red Blood Cells-Urine 0 SEEN /hpf (0-5); White Blood Cells 0 SEEN /hpf (0-5)
[2021-11-16 01:41] LABS: Color, Urine Yellow (Yellow); Glucose, Dipstick Normal (Normal); Ketone-Dipstick Negative (Negative); Leukocyte Esterase-Dipstick Negative /ul (Negative); Nitrite-Dipstick Negative (Negative); Occult Blood-Urine Negative /ul (Negative); Protein-Dipstick Negative (Negative); Specific Gravity, Urine 1.015 (1.002-1.030); Urine Bilirubin Dipstick Negative (Negative); Urine Clarity Clear (Clear); Urine Urobilinogen Normal (Normal)
[2021-11-16 01:51] LABS: Bacteria RARE /hpf (None Seen); Mucous, Urine RARE /hpf (<or=2+); Squamous Epithelial Cells - UA 0-5 SEEN /hpf (5-10)
[2021-11-16 02:00] VITALS: O2SAT 97
== END 2021-11-16 02:20 | disposition home or self-care (01) ==
LOC: ED 00:46
PROVIDERS: Emergency Provider Emergency Medicine; PCP Internal Medicine; Visit Provider Emergency Medicine
DX: R50.9 Fever, unspecified (principal); L97.919 Non-pressure chronic ulcer of unspecified part of right lower leg with unspecified severity; R51.9 Headache, unspecified; R06.02 Shortness of breath; R11.2 Nausea with vomiting, unspecified; E78.5 Hyperlipidemia, unspecified; Z79.899 Other long term (current) drug therapy; Z86.16 Personal history of COVID-19; Z86.718 Personal history of other venous thrombosis and embolism; K21.9 Gastro-esophageal reflux disease without esophagitis; M19.90 Unspecified osteoarthritis, unspecified site
CPT/HCPCS: 71045; 80053; 81001; 83605; 85025; 87428; 99284; J7030; A4216

== ENCOUNTER → 2021-11-29 | Outpatient (CLI) | payer MEDICARE, SELFPAY ==
--- NOTE | 2021-11-29 13:25 | CT_ITS ---
STUDY: CT Chest W/ Contrast Injection 11/29/2021 3:03 PM REASON FOR EXAM: Female, [address] PNEUMONIA Individualized dose optimization techniques were used for this CT. TECHNIQUE: Transaxial imaging was performed with 75cc of Isovue 300 IV contrast material. Contrast: IV 75mL Isovue-300 Comparison: Aug 04 2021 8:31pm FINDINGS: There are degenerative changes of the shoulders. There is no pneumothorax. There is no demonstrated pleural abnormality. There are calcifications of the coronary arteries. There are multiple small lymph nodes within the mediastinum, which are normal in size and morphology most compatible with reactive lymph hyperplasia. Normal hilar regions. Normal pulmonary arteries. There is atherosclerotic calcification of the aortic arch with tortuosity and elongation of the aortic arch and descending thoracic aorta. There are multi-level degenerative changes of the thoracic spine. There is a right Bochdalek hernia hernia noted posteriorly along the diaphragm. The defect opening is 49mm and contains intra abdominal fat. The fat extends into the right lower lobe pleural space. The gallbladder is surgically absent. Stable hypodensity in the right lobe of the liver. CT/Chest WITH Contrast IMPRESSION: There are no acute findings. Resolution of the previous pneumonia. Stable hypodensity in the right lobe of the liver. Electronically Signed: Richard Maki MD at 15:08 EDT ,
== END | disposition home or self-care (01) ==
LOC: CT 13:23
PROVIDERS: PCP Internal Medicine; Referring Provider Internal Medicine; Visit Provider Internal Medicine
DX: R93.89 Abnormal findings on diagnostic imaging of other specified body structures (principal)
CPT/HCPCS: 71260; Q9967

== ENCOUNTER → 2021-12-15 | Outpatient (CLI) | payer MEDICARE, SELFPAY ==
--- NOTE | 2021-12-15 11:02 | ECHOD_ITS ---
Reason For Study: SOB Procedure This was a 2D Doppler, Color Flow transthoracic echocardiogram. The study was technically difficult. Contrast injection was performed. Exam performed in department. Left Ventricle Normal LV size. Left ventricular systolic function is normal. The estimated ejection fraction is 60 %. No evidence for diastolic dysfunction. No regional wall motion abnormalities noted. Right Ventricle Normal RV size. Normal systolic function. Atria The left atrium is mildly enlarged. Normal right atrium. No doppler evidence for ASD. Mitral Valve There is mild to moderate mitral annular calcification. Extension of the mitral annular calcification onto the base of the posterior mitral valve leaflet. Mild focal mitral valve calcification of the anterior leaflet. Trivial mitral valve insufficiency. Tricuspid Valve Normal tricuspid valve. Trivial tricuspid valve insufficiency. Right ventricular systolic pressure estimated to be 34 mmHg. Aortic Valve Trisinus/trileaflet aortic valve. Normal aortic valve. Pulmonic Valve The pulmonic valve is not well visualized. Great Vessels Normal sized aortic root. Pericardium/Pleural No pericardial effusion. Medication 22 gauge I.V. with prn adaptor inserted into right arm. Diluted definity 2ml given slow IV push to enhance endocardial definition. Performed a rapid injection of agitated mix of 9 cc saline and 1cc air to assess for atrial septal defect. MMode/2D Measurements & Calculations LVIDd: 4.0 cm IVSd: 1.0 cm Ao root diam: 3.1 cm LVIDs: 2.8 cm LVPWd: 1.0 cm RVDd: 3.8 cm FS: 30.7 % LAV(MOD-bp): 64.2 ml LVAd ap4: 35.7 cm2 SV(MOD-sp4): 73.6 ml LAV(MOD-bp) Indexed: 31.9 ml/m2 LVLd ap4: 7.9 cm LAV(MOD-sp2): 65.8 ml EDV(MOD-sp4): 132.0 ml LAV(MOD-sp4): 61.1 ml EDV(sp4-el): 137.2 ml LVAs ap4: 21.7 cm2 LVLs ap4: 6.6 cm ESV(MOD-sp4): 58.4 ml ESV(sp4-el): 60.5 ml EF(MOD-sp4): 55.8 % EF(sp4-el): 55.9 % SV(sp4-el): 76.6 ml LA A4 area: 20.5 cm2 LA dimension(2D): 3.4 cm RA A4 area: 16.4 cm2 Time Measurements MV dec time: 0.11 sec Doppler Measurements & Calculations MV E max jorden: 158.0 cm/sec Lat Peak E' Jorden: 16.5 cm/sec Med Peak E' Jorden: 13.8 cm/sec E/E' lat: 9.6 E/E' med: 11.5 Ao V2 max: 173.5 cm/sec AI max jorden: 431.2 cm/sec LV V1 max: 141.1 cm/sec Ao max P.0 mmHg AI max P.4 mmHg LV V1 max P.0 mmHg AI dec slope: 241.8 cm/sec2 AI P1/2t: 522.4 msec PA V2 max: 90.9 cm/sec TR max jorden: 279.7 cm/sec TR max P.3 mmHg ECHO/Echo Complete W/ Contrast Interpretation Summary The study was technically difficult. Contrast injection was performed. Left ventricular systolic function is normal. The estimated ejection fraction is 60 %. The left atrium is mildly enlarged. There is mild to moderate mitral annular calcification. Extension of the mitral annular calcification onto the base of the posterior mi tral valve leaflet. Mild focal mitral valve calcification of the anterior leaflet. Trivial mitral valve insufficiency. Trivial tricuspid valve insufficiency. Right ventricular systolic pressure estimated to be 34 mmHg. No evidence for diastolic dysfunction. Ordering Physician: Rebecca Argueta Referring Physician: Rebecca Argueta Performed By: Mehnaz Mckeon RDCS
== END | disposition home or self-care (01) ==
LOC: CVS 11:00
PROVIDERS: PCP Internal Medicine; Referring Provider Internal Medicine; Visit Provider Internal Medicine
DX: R06.02 Shortness of breath (principal); R00.0 Tachycardia, unspecified
CPT/HCPCS: 93306; Q9957; A4216; C8929

== ENCOUNTER → 2022-02-28 | Outpatient (CLI) | payer MEDICARE, SELFPAY ==
--- NOTE | 2022-02-28 12:48 | VDLE_ITS ---
Reason For Study: Pain LLE Procedure LEFT This is a venous duplex using B-mode, color GSV is normal. flow and spectral Doppler. CFV is compressible, spontaneous, phasic, Exam performed in department. competent, and demonstrates normal A preliminary report was called and/or faxed augmentation. to Lizeth HOFFMAN. FV is compressible, spontaneous, phasic, competent and demonstrates normal augmentation. POP V is compressible, spontaneous, phasic, competent and demonstrates normal augmentation. T/P Trunk is compressible. PTV is compressible. LT PerV is compressible. VL/Venous Duplex US, Unilateral Interpretation Summary Deep veins of the left lower extremity are patent and compressible segmentally. There is no evidence of left lower extremity deep vein thrombosis. Valvular competence appears intac t within the proximal deep venous system on the left . The left great saphenous vein appears patent a nd compressible segmentally. Ordering Physician: Lizeth Griffin Referring Physician: Rebecca Argueta Performed By: Minnie Copeland, MARCIE, RVT
== END | disposition home or self-care (01) ==
LOC: CVS 12:47
PROVIDERS: PCP Internal Medicine; Referring Provider Physician Assistant; Visit Provider Physician Assistant
DX: M79.662 Pain in left lower leg (principal)
CPT/HCPCS: 93971

== ENCOUNTER → 2022-04-04 | Outpatient (CLI) | payer MEDICARE, SELFPAY ==
--- NOTE | 2022-04-04 11:30 | BI_ITS ---
MAMMOGRAPHY - BILATERAL SCREENING REASON FOR EXAM: Female, 77 years old. Routine annual screening examination. PERTINENT HISTORY: Non-contributory. TECHNIQUE: Digital bilateral breast rod (3D mammographic acquisition) in the CC and MLO projections. 2-D mediolateral oblique (MLO) and craniocaudad (CC) views of both breasts were obtained. CAD: Full Field Digital Mammography with Computer Added Detection was performed. COMPARISON: Comparison is made with prior study dated 12/22/2020 and 08/18/2019. FINDINGS: Breast Composition: The breasts are almost entirely fatty. There are no dominant masses or suspicious calcifications. Stable small benign appearing bilateral axillary nodes. No other significant abnormalities are identified. There has been no significant change since the prior study. BI/SCRN MAMM (CAD)W/ROD BILAT IMPRESSION: Stable bilateral screening mammogram. Yearly follow-up mammogram recommended. (A) ASSESSMENT CATEGORY: BIRADS Category 2: Benign. A letter regarding these results will be sent to the patient by the facility within 30 days. Approximately 10% of breast cancers are not detected by mammography. A normal mammogram should not delay biopsy of a clinically suspicious abnormality. [id number] Electronically Signed: Eliazar Herzog MD at 12:26 EDT ,
--- NOTE | 2022-04-04 11:34 | BD_ITS ---
STUDY: DUAL ENERGY X-RAY ABSORPTIOMETRY / DXA REASON FOR EXAM: Female, 77 years old. 733.00OsteoporosisBONE DENSITY REASON FOR EXAM -- screening bone density for osteoporosis TECHNIQUE: Bone Mineral Density (BMD) measurements of lumbar spine and bilateral hips were obtained. COMPARISON: Comparison is made with prior study 02/23/2020. FINDINGS: Lumbar Spine (L1-L4): g/cm2 (1.066) / T-score (-0.3) / Z-score (2.4) Findings are suggestive of normal bone density with a low fracture risk. Left Femur Total: g/cm2 (0.888) / T-score (-0.4) / Z-score (1.5) Left Femoral Neck: g/cm2 (0.6-2) / T-score (-2.0) / Z-score (0.2) Right Femur Total: g/cm2 (0.874) / T-score (-0.6) / Z-score (1.4) Right Femoral Neck: g/cm2 (0.674) / T-score (-1.6) / Z-score (0.6) The T-Scores on the most recent prior examination were: Lumbar Spine (L1-L4): There has been worsening of bone density since the previous examination. Left Femur Total: which represents a worsening of 5.7%. Right Femur Total: which represents a worsening of 3.1%. BD/Dexa Bone Density Study IMPRESSION: The patient is considered osteopenic as outlined below according to World Moncho Organization (WHO) criteria with a moderate fracture risk. There has been worsening of bone density since the previous examination. Reference Information: The T-score is the number of standard deviations above or below the standard which is normal for young adults at their peak bone mineral density. The World Health Organization (WHO) interprets the T-scores as follows: Above -1 Normal bone density Between -1 and -2.5 Osteopenia Equal to / or below -2.5 Osteoporosis As a practical clinical guideline, osteopenia may be graded as follows: Mild -1 through -1.5 Moderate -1.6 through -2.0 Severe -2.1 through -2.4 The Z-score is the number of standard deviations above or below age-matched controls. A Z-score of less than -1.5 would be considered abnormal. References: 1. NIH Osteoporosis and Related Bone Diseases www osteo.org 2. International Society for Clinical Densitometry www iscd.org 3. National Osteoporosis Foundation www nof.org Electronically Signed: Eliazar Herzog MD at 14:15 EDT ,
== END | disposition home or self-care (01) ==
LOC: OPBD 11:29
PROVIDERS: PCP Internal Medicine; Referring Provider Internal Medicine; Visit Provider Internal Medicine
DX: Z12.31 Encounter for screening mammogram for malignant neoplasm of breast (principal); M85.80 Other specified disorders of bone density and structure, unspecified site; M81.0 Age-related osteoporosis without current pathological fracture; Z78.0 Asymptomatic menopausal state
CPT/HCPCS: 77063; 77067; 77080

== ENCOUNTER → 2022-05-21 | Outpatient (CLI) | payer MEDICARE, SELFPAY ==
--- NOTE | 2022-05-21 18:51 | CT_ITS ---
EXAM: CT LEFT LOWER EXTREMITY WITHOUT INTRAVENOUS CONTRAST CLINICAL INDICATION: OSTEOARTHRITIS TECHNIQUE: Helically acquired images were obtained of the left lower extremity without intravenous contrast. 2-D reformats were performed by the technologist. CTDIvol = ( 19.11 ) mGy, DLP = ( 1584.49 ) mGycm This CT exam was performed using one or more of the following dose reduction techniques: automated exposure control, adjustment of the mA and/or kV according to patient size, and/or use of iterative reconstruction technique. This report was created using [employer] report [employer] technology. COMPARISON: May 02, 2020 FINDINGS: Large suprapatellar joint effusion. Severe tricompartmental osteoarthrosis involving the knee worse at the medial compartment with associated lateral dislocation of the tibia relative to the femur. Intra-articular ossific body noted posteriorly along the lateral supracondylar region. Subcutaneous edema is nonspecific. No organized fluid collections Prior fixation of medial and lateral patellar fractures without complication or failure. No residual fracture lucencies. No acute or healing fracture. Mild to moderate osteoarthrosis involving the left hip joint. Multiple phleboliths in the pelvis. Distal colonic diverticulosis but no acute diverticulitis. CT/Extremity Lower without Contra IMPRESSION: 1. Large suprapatellar joint effusion. 2. Severe tricompartmental osteoarthrosis involving the knee worse at the medial compartment with associated lateral dislocation of the tibia relative to the femur. Intra-articular ossific body noted posteriorly along the lateral supracondylar region. Electronically Signed: Tae Harvey MD at 21:37 EST ,
== END | disposition home or self-care (01) ==
LOC: CT 18:50
PROVIDERS: PCP Internal Medicine; Visit Provider Orthopaedic Surgery
DX: M17.32 Unilateral post-traumatic osteoarthritis, left knee (principal)
CPT/HCPCS: 73700

== ENCOUNTER → 2022-06-04 | Outpatient (CLI) | payer MEDICARE, SELFPAY ==
[2022-06-04 13:32] LABS: Absolute Lymphocyte Count 1.02 X10^3/uL (0.83-4.51); Absolute Neutrophil Count 2.5 X10^3/uL (2.0-7.7); Eosinophil# 0.05 X10^3/uL; Eosinophils% 1.3 % (0-5); Hematocrit 34.1 % (37-47); Hemoglobin 11.1 g/dL (12.0-15.0); Lymphocyte # 1.02 X10^3/ul (0.83-4.51); Lymphocyte % 26.5 % (19-41); Mean Corp Hgb Conc 32.6 g/dL (32-36); Mean Corpuscular Hgb 29.7 pg (27.0-32.0); Mean Corpuscular Volume 91.2 fL (81-99); Mean Platelet Vol. 10.4 fl (6.2-12.0); Monocyte% 7.8 % (0-10); NRBC Flagged by Analyzer 0 % (0-5); Neutrophil # 2.47 X10^3/uL (2.7-7.7); Neutrophil % 64.1 % (47-70); Platelet Count 146 K/mm3 (150-450); RBC Distribution Width CV 13.3 % (11.6-14.6); RBC Distribution Width SD 44.9 fl (35.1-43.9); RET-HE 33.6 pg (30-35); Red Blood Count 3.74 M/mm3 (4.2-5.4); Reticulocyte Count 1.09 % (0.5-1.5); White Blood Count 3.9 K/mm3 (4.4-11.0)
[2022-06-04 13:34] LABS: Erythrocyte Sedimentation Rate 8 mm/hr (0-30)
[2022-06-04 14:04] LABS: Hepatitis B Surface Antibody Non-Reactive; Vitamin B12 580 pg/mL (211-911)
[2022-06-04 14:13] LABS: ALB/GLOB Ratio 1.2 RATIO (0.9-2.4); AST(SGOT) 23 U/L (15-37); Alanine Aminotransfer ALT/SGPT 33 U/L (13-56); Albumin, Serum 3.8 g/dL (3.2-5.0); Alkaline Phosphatase 84 U/L (45-117); Anion Gap 5 (5-15); BUN 18 mg/dL (7-18); BUN/Creat Ratio 20.8 RATIO (10-20); Calcium,Total 8.8 mg/dL (8.5-10.1); Chloride 102 mmol/L (98-107); Creatinine, Serum 0.87 mg/dL (0.55-1.02); EST Glomerular Filtration Rate 67 mL/min (>60); Est Glom Filt Rate - Afr Amer 81 mL/min (>60); Ferritin 35 ng/mL (8-252); Globulin 3.3 g/dL (2.2-4.2); Glucose 94 mg/dL (74-106); Iron 67 ug/dL (50-170); Iron Binding Capacity,Total 345 ug/dL (250-450); LDH 204 U/L (84-246); PERCENT IRON SATURATION 19.4 % (15.0-55.0); Potassium 3.7 mmol/L (3.5-5.1); Protein, Total 7.1 g/dL (6.4-8.2); Sodium Level 135 mmol/L (136-145)
[2022-06-06 16:22] LABS: ANTINUCLEAR ANTIBODIES DIRECT Negative (Negative)
[2022-06-07 12:08] LABS: HEPATITIS B SURFACE AG Negative (Negative); Haptoglobin 54 mg/dL (42-346); Hep C Antibodies <0.1 s/co ratio (0.0-0.9); Hepatitis A IgM Antibody Negative (Negative); Hepatitis B Core AB IgM Negative (Negative); PROEL- A/G Ratio 1.5 (0.7-1.7); PROEL- Albumin 4.1 g/dL (2.9-4.4); PROEL- Alpha-1 Globulin 0.3 g/dL (0.0-0.4); PROEL- Alpha-2 Globulin 0.7 g/dL (0.4-1.0); PROEL- Beta Globulin 0.9 g/dL (0.7-1.3); PROEL- Gamma Globulin 0.9 g/dL (0.4-1.8); PROEL- Globulin, Total 2.8 g/dL (2.2-3.9); PROEL- TOTAL PROTEIN 6.9 g/dL (6.0-8.5); PROELU- Albumin, Urine 19.9 % (.); PROELU- Alpha-1-Globulin,Ur 4.6 % (.); PROELU- Alpha-2-Globulin,Ur 18.2 % (.); PROELU- Beta Globulin, Ur 23.4 % (.); PROELU- Gamma Globulin, Ur 33.8 % (.)
[2022-06-07 20:40] LABS: Hepatitis A AB, Total Positive (Negative)
[2022-06-07 20:41] LABS: Total Protein, Ur < 4.0 mg/dL (Not Estab.)
== END | disposition home or self-care (01) ==
PROVIDERS: PCP Internal Medicine; Referring Provider Internal Medicine; Visit Provider Internal Medicine
DX: D61.818 Other pancytopenia (principal)
CPT/HCPCS: 36415; 80053; 80074; 82607; 82728; 82746; 83010; 83540; 83550; 83615; 84165; 84166; 85025; 85045; 85652; 86038; 86706; 86708

== ENCOUNTER → 2022-06-12 | Outpatient (CLI) | payer MEDICARE, SELFPAY ==
--- NOTE | 2022-06-12 16:00 | RAD_ITS ---
EXAM: XR CHEST, 2 VIEWS CLINICAL INDICATION: having SOB -- having SOB TECHNIQUE: Frontal and lateral views of the chest. This report was created using [employer] report generation technology. COMPARISON: 11/16/2021 FINDINGS: LUNGS AND PLEURAL SPACES: Unremarkable. No consolidation or edema. No pneumothorax. No effusion. HEART: Unremarkable. Cardiac silhouette not enlarged. MEDIASTINUM: Central airways and mediastinal contour are unremarkable. BONES/JOINTS: Unremarkable. SOFT TISSUES: Unremarkable. RAD/Chest PA and Lateral IMPRESSION: No radiographic evidence of acute cardiopulmonary disease. Electronically Signed: Mikel Huffman MD at 19:28 EST ,
== END | disposition home or self-care (01) ==
LOC: MTRAD 16:00
PROVIDERS: PCP Internal Medicine; Referring Provider Internal Medicine; Visit Provider Internal Medicine
DX: R06.02 Shortness of breath (principal)
CPT/HCPCS: 71046

== ENCOUNTER 2022-06-25 12:38 | Observation (INO) | payer MEDICARE, SELFPAY ==
[2022-06-12 17:12] LABS: International Normalized Ratio 1.2; Prothrombin Time (Protime)PT. 14.5 SECONDS (11.7-14.9)
[2022-06-12 17:13] LABS: Partial Thromboplast Time 29.8 Seconds (24.1-36.2)
[2022-06-12 17:31] LABS: AST(SGOT) 28 U/L (15-37); Alanine Aminotransfer ALT/SGPT 31 U/L (13-56); Albumin, Serum 3.9 g/dL (3.2-5.0); Alkaline Phosphatase 91 U/L (45-117); Bilirubin, Direct 0.14 mg/dL (0.00-0.30); Globulin 3.4 g/dL (2.2-4.2); Magnesium 2.2 mg/dL (1.6-2.6); Protein, Total 7.3 g/dL (6.4-8.2)
[2022-06-25] VITALS (15 sets, daily range): BP systolic 92–167; BP diastolic 43–82; PULSE 70–93; RESP 14–18; TEMP 36.4–36.7; O2SAT 93–100; BMI 38.2; BMI 38.0
[2022-06-25] MEDS: Lactated Ringers 1,000 ML 15 ML IV ×2 (08:13→11:38)
[2022-06-25] MEDS: Acetaminophen 500 MG Tablet 1000 MG PO ×2 (08:29→21:22)
[2022-06-25] MEDS: Gabapentin 600 MG Tablet PO (08:29)
[2022-06-25] MEDS: Celecoxib 200 MG Capsule 400 MG PO (08:29)
[2022-06-25 08:51] LABS: Bedside Glucose 120 mg/dL (74-106)
--- NOTE | 2022-06-25 10:00 | KNEE_PTH ---
PATIENT: DELL DIGGS LOC: MS3 U#:[id number] AGE/SX: 77/F ROOM: [facility] [place] RE06/25/[address]: Dr. Wicho Mendiola MD : 1945 BED: 1 DIS: 06/26/2022 SPEC #: [id number] RECD: 06/25/22 14:17 STATUS: ALIRIO REQ #: [id number] YAHAIRA: 06/25/22 10:[address]: Wicho Mendiola DEPT: SURGICAL PATHOLOGY RECD BY: Juana Ulrich ENTERED: 06/26/22 09:27 SP TYPE: TOTAL KNEE OTHR DR: Dr. Rebecca Argueta, DO Tissues: Knee, NOS Procedures: Decalcification bone/plaque Surgery Specimen Level IV HEADER OPERATION: ERAS, total knee replacement PRE-OP DIAGNOSIS: Posttraumatic arthritis TISSUE SUBMITTED: Left knee bone MICROSCOPIC DIAGNOSIS Left knee bone, total knee replacement/resection: Pieces of bone with degenerative osteoarthritic changes. FINN:damian 06/29/2022 MICROSCOPIC DESCRIPTION Slides are reviewed. GROSS DESCRIPTION Received is one container designated left knee bone. The specimen consists of multiple fragments of ramos-yellow bone measuring in aggregate 12 x 11 x 4 cm. No soft tissue is identified. A number of bony fragments contain articular surfaces consistent with tibial plateau and femoral condyle and displaying prominent osteophyte formation, eburnation and bone erosion. Medical Care Manager sections are submitted in one cassette after decalcification. / FINN:damian 06/26/2022 TC:5 CPT: 70738, 73243
[2022-06-25] MEDS: TXA 1000mg in NS100 100ml (IVPB at Closure) 660 MG IV (11:01)
[2022-06-25] MEDS: Cefazolin 2 GM in 0.9% Normal Saline 100 ML IV (11:02)
[2022-06-25] MEDS: dexAMETHasone 10 MG/ML Vial IV (11:23)
[2022-06-25] MEDS: TXA 1000mg in NS100 100ml (IVPB at Incision) 660 MG IV (12:11)
--- NOTE | 2022-06-25 12:42 | PCM.OPRPT ---
Problems Associated Problem List Diagnoses (1) Unilateral post-traumatic osteoarthritis, left knee:
--- NOTE | 2022-06-25 12:44 | OP.PCM_ITS ---
Operative Report Date of Procedure: 06/25/22 Preoperative diagnosis: [Left ] knee severe posttraumatic arthritis Postoperative diagnosis: Same Title of procedure : [Left ] total knee replacement Surgeon: Wicho Mendiola MD Strategic Debriefing Officer: Lizeth Griffin PA-C Anesthesia: Spinal, adductor canal nerve block Anesthesiologist: Dr. Rubin Special medications: Ancef 2 g IV, tranexamic acid 1 g IV x2 EBL: 50 Tourniquet time 54 minutes Indications for surgery: Patient is a [77]-year-old [female] with a history of knee arthritis appropri ately treated and failed conservative measures and wished to proceed with total knee replacement. Patient was cleared for surgery by the medical doctor and has been evaluated by the anesthesia staff Findings: Intraoperative findings showed severe arthritis of the knee. Patient underwent knee replacement using bright boxlon total knee components. Press-fit size [4] femur, size [5] tibia, [32 x 10] asymmetric X3 patella, size [5-11 CS] X3 tibial polyethylene insert, knee was nicely balanced. Patella tracked well. Patient underwent standard wound closure in layers. Vicryl and strata fix sutures utilized with skin pradeep. hospital nursing assistant, physician assistant designer, was utilized throughout the entire procedure. They were vital in helping with patient positioning, holding of retractors, exposing the tissues adequately for safe completion of the procedure including cutting of the bone, helping outside dealer sales representative appropriate alignment and sizing of the components, implantation of the components, as well as wound closure, bandage application, and safe patient transfer. Without surgical forceps fabricator, physician assistant designer, surgical time would have been significantly increased, and surgical outcome could have been less optimal. Description of procedure: The patient was taken to the OR, transferred to the OR table. They were given a spinal anesthetic. Ancef was given IV preoperatively. Tranexamic acid was given IV preoperatively. Well-padded tourniquet was applied to the upper thigh of the operative leg. Nonoperative leg had a BÁRBARA hose and SCD on throughout. Operative limb was prepped padded and draped in usual orthopedic sterile fashion for the procedure. We began by injecting the pain relieving solution in the anterior superior aspect of the knee region. The limb was exsanguinated, and the tourniquet was applied to 300 mmHg. Made a midline incision through skin, subcutaneous tissue, bringing down us on the extensor mechanism. Medial parapatellar arthrotomy was carried out. Straw-colored joint fluid was evacuated. We raised a sleeve of tissue off the upper medial tibia. Resected some of the infrapatellar fat pad. We remove degenerative medial and lateral meniscus. Removed bone spurs from about the patella. We removed tissue off the anterior aspect of the distal femur. Patella was translated laterally and/or everted as needed throughout the procedure. ACL was resected. PCL was preserved. Collateral ligaments were preserved. Physician placed the retractors and assistant designer held retractors protecting above ligaments throughout the procedure. Cartilage was removed from the distal femur and upper tibia at the appropriate locations. Next custom cutting block was applied to the front of the femur. Appropriate external rotation . Distal femoral cut carried out. 4-in-1 cutting premade block was applied to the distal femur and held in place with 4 pins. Strategic Debriefing Officer again held retractors to protect the soft tissues while surgeon performed anterior, posterior, and chamfer cuts. Bony fragments were removed. PCL retractor was placed and collateral ligament protectors placed by the surgeon, held by the assistance. Tibial external alignment guide was utilized under standard technique going down the shaft of the tibia, to the base of the second metatarsal. Appropriate posterior slope was built in. Strategic Debriefing Officer help outside dealer sales representative alignment. Cutting block was held in place with 3 pins. Again checked the external alignment. Tibial cut carried out with a saw while the assistant designer held retractors protecting the soft tissues about the anterior, medial, lateral, and posterior knee. Bone fragment removed. We then sized off the upper tibia with the help of the assistant designer. We then checked flexion extension gaps finding them to be adequate and equal. Next the distal femoral trial was applied. Tibial tray was allowed to freefloat with a 9 mm insert. Knee was flexed and extended an external alignment guide is utilized. Tibial t rial was pinned in place. Drill holes were placed into the distal femoral trial and it was removed. Punch was used on the upper tibial component and that was removed. The sclerotic bone was softened with a sharp pin. Bone spurs removed from the posterior medial and posterior lateral aspect of the femur while the assistant designer lifted up on the distal femur and exposed each compartment. Patella was everted and measured and appropriate resection was carried out while the assistant designer held the guide and patella in good position. Patellar remnant measured to be at or just greater than 14 mm. Patella was sized. Clamp was utilized. 3 drill holes were placed through the clamp held by the assistant designer. Trial patella was placed and removed. Bleeding was controlled at the back of the knee with the bovey. Posterior knee soft tissues were carefully injected with pain relieving solution. Components were checked and open. Two full batches of bone cement were mixed. Knee was thoroughly irrigated with Irrisept and sterile Betadine.. The bony surfaces cleaned and dried. We press-fit the tibia, femur, and patella component.. Strategic Debriefing Officer held retractors exposing the bony surfaces of the tibia and femur which were hammered in position. Patella clamped into position. We re-trialed with the help of the assistant designer and then placed the appropriate sized polyethylene component. We thoroughly irrigated and debrided the knee. Bleeding controlled with the Bovie. Knee was again thoroughly irrigated with sterile Betadine and Irrisept and saline. Patella noted to track nicely. We repaired the arthrotomy with a combination of #1 Vicryl and #2 strata fix. We did a mid layer of 1 Vicryl and #1 strata fix running. We then did inverted 2-0 vicryl . Pradeep used on the skin.. M epilex dressing applied. BÁRBARA hose and SCDs applied. Patient was awoken from their anesthetic, transferred back to their own bed and recovery room in satisfactory condition. Second dose of IV Tranexamic acid was given while closing wound. Patient was observation status, appropriate IV antibiotic to be utilized as well as medication for DVT prevention. Hopeful discharge tomorrow. Physical th janicepy will be consulted. This note was generated with [employer] dictation software. It may contain incorrect words, spelling, and punctuation that were not noted in checking the note before signing.
--- NOTE | 2022-06-25 13:05 | RAD_ITS ---
STUDY: X-RAY - LEFT KNEE REASON FOR EXAM: Female, 77 years old. Post op -- AP and Lateral xray of operative knee in PACU TECHNIQUE: 2 view(s) of the knee. COMPARISON: None. FINDINGS: There is new left side knee arthroplasty with 3 parts with overlying skin pradeep and postoperative change including edema. The arthroplasty appears to be in anatomic position and alignment. RAD/Knee 1 or 2 Views IMPRESSION: New left knee arthroplasty which appears to be in anatomic position and alignment. Electronically Signed: Maryann Cervantes MD at 16:57 EST Reading Location ID and State: [facility] / [place] Tel , Service support ,
[2022-06-25] MEDS: Lactated Ringers 1,000 ML 125 ML IV (14:08)
[2022-06-25] MEDS: Cefazolin 1 GM/50 ML BAG IV (18:28)
[2022-06-25] MEDS: Albuterol 2.5 MG/3 ML VIAL.NEB. INHALATION (19:04)
[2022-06-25] MEDS: Budesonide Respules 0.5 MG/2 ML AMPUL.NEB. INHALATION (19:05)
[2022-06-25] MEDS: Atorvastatin Calcium 10 MG Tablet PO (21:20)
[2022-06-25] MEDS: Doxycycline 100 MG CAPSULE PO (21:21)
[2022-06-25] MEDS: Pramipexole Di-HCl 1 MG Tablet PO (21:21)
[2022-06-25] MEDS: Mirtazapine 30 MG Tablet PO (21:22)
[2022-06-25] MEDS: busPIRone 5 MG Tablet 10 MG PO (21:22)
[2022-06-25] MEDS: Pantoprazole Sodium 40 MG Tablet PO (21:22)
[2022-06-25] MEDS: Senna/Docusate Sodium 1 Tablet 2 TABLET PO (21:22)
[2022-06-25] MEDS: traZODone 100 MG Tablet PO (21:22)
[2022-06-26 02:36] VITALS: BP 101/57; PULSE 68; RESP 16; TEMP 36.5; O2SAT 92
[2022-06-26] MEDS: Cefazolin 1 GM/50 ML BAG IV (02:44)
[2022-06-26] MEDS: oxyCODONE 5 MG Tablet PO ×2 (02:44→13:32)
[2022-06-26 04:54] LABS: Hematocrit 27.1 % (37-47); Hemoglobin 8.7 g/dL (12.0-15.0); Mean Corp Hgb Conc 32.1 g/dL (32-36); Mean Corpuscular Hgb 29.7 pg (27.0-32.0); Mean Corpuscular Volume 92.5 fL (81-99); Mean Platelet Vol. 11.1 fl (6.2-12.0); Platelet Count 110 K/mm3 (150-450); RBC Distribution Width CV 12.9 % (11.6-14.6); Red Blood Count 2.93 M/mm3 (4.2-5.4); White Blood Count 6.7 K/mm3 (4.4-11.0)
[2022-06-26 05:17] LABS: Anion Gap 6 (5-15); BUN 13 mg/dL (7-18); BUN/Creat Ratio 14.2 RATIO (10-20); Calcium,Total 8.2 mg/dL (8.5-10.1); Chloride 102 mmol/L (98-107); Creatinine, Serum 0.91 mg/dL (0.55-1.02); EST Glomerular Filtration Rate 63 mL/min (>60); Est Glom Filt Rate - Afr Amer 77 mL/min (>60); Estimated Creatinine Clearance 42.15 ml/min; Glucose 125 mg/dL (74-106); Sodium Level 134 mmol/L (136-145)
[2022-06-26] MEDS: Acetaminophen 500 MG Tablet 1000 MG PO ×2 (06:23→13:33)
[2022-06-26 07:30] VITALS: PULSE 72; RESP 18
[2022-06-26 07:31] VITALS: BP 136/66; PULSE 61; RESP 16; TEMP 36.8; O2SAT 96
--- NOTE | 2022-06-26 07:45 | PCM.PN.ORT ---
Subjective Subjective Patient sitting at bedside, states pain has been very well managed. Patient denies chest pain, shortness of breath, patient also denies any calf pain nausea vomiting. Patient reports that she does have a history of a previous blood clot postoperatively. At this time patient has no other complaints. She reports she will be doing home therapy upon discharge. Objective Data Objective Data Vital Signs: Vital Signs Temp Pulse Resp BP Pulse Ox O2 Del Method O2 Flow Rate 98.2 F 61 16 136/66 H 96 Room Air 4 06/26/22 07:31 06/26/22 07:31 06/26/22 07:31 06/26/22 07:31 06/26/22 07:31 06/26/22 07:31 06/25/22 14:30 Oxygen Flow Rate (L/min) 4 Oxygen Delivery Method Room Air Weight: 97.522 kg Body Mass Index (BMI) 38.0 Intake & Output: Intake and Output for Last 24 Hours 06/24/22 06/25/22 06/26/22 23:59 23:59 23:59 Intake Total 3884.08 / 3884.08 1209 / 1209 Output Total 705 / 705 600 / 600 Balance 3179.08 / 3179.08 609 / 609 Lab / Micro Data Result Diagrams: 06/26/22 04:32 06/26/22 04:32 Labs: Laboratory Results - last 24 hr 06/25/22 07:48: POC Glucose 120 H 06/26/22 04:32: WBC 6.7, RBC 2.93 L, Hgb 8.7 L, Hct 27.1 L, MCV 92.5, MCH 29.7, MCHC 32.1, RDW Std Deviation 44.0 H, RDW Coeff of Leobardo 12.9, Plt Count 110 L, MPV 11.1 06/26/22 04:32: Sodium 134 L, Potassium 4.0, Chloride 102, Carbon Dioxide 26.0, Anion Gap 6, BUN 13, Creatinine 0.91, Estim Creat Clear Calc 42.15, Est GFR (MDRD) Af Amer 77, Est GFR (MDRD) Non-Af 63, BUN/Creatinine Ratio 14.2, Glucose 125 H, Calcium 8.2 L Micro: Microbiology 06/12/22 16:29 Swab (Method) Nasal Screen MRSA/MSSA - Final Radiography Diagnostic Testing: Radiology Impression Knee X-Ray 06/25/22 13:05 IMPRESSION: New left knee arthroplasty which appears to be in anatomic position and alignment. Electronically Signed: Maryann Cervantes MD at 16:57 EST , Physical Exam Narrative Exam I found patient sitting comfortably in a chair at bedside. Cranial nerves II through gross intact. Patient was in no respiratory distress speaking in full sentences. Good range of motion of the upper extremities with good muscle tone and strength. The dressing of the left knee was clean dry intact. Neurovascular she is otherwise intact. Const alert and oriented x3 General Appearance: cooperative HEENT normocephalic Eyes PERRL Extremity normal capillary refill Skin no rashes or lesions noted Neuro CN's II-XII intact bilaterally Motor Exam: strength 5/5 throughout and muscle tone normal throughout Psych mental status grossly normal and affect normal Assessment & Plan Assessment/Plan (1) Status post total left knee replacement: PLAN: 1. Continue pain medication as prescribed 2. Patient will be given 1 aspirin 81 mg p.o. a.m. this morning. Patient will then take Xarelto 10 mg 1 p.o. at dinnertime for 2 weeks, then will do 2 weeks of 81 mg aspirin 1 p.o. every 12 hours. 3. Encourage incentive spirometry 4. Do ampm physical therapy discharge this afternoon 5. Discharge home 6. Patient will begin home physical therapy 7. Patient will follow-up with Dr. Mendiola as scheduled
[2022-06-26] MEDS: Aspirin 81 MG TAB.CHEW PO (07:51)
[2022-06-26] MEDS: dexAMETHasone 10 MG/ML Vial IV (07:51)
--- NOTE | 2022-06-26 07:51 | DCINST_ITS ---
Discharge Instructions Diet Discharge Diet: No restrictions Activity Discharge Activity: Return to Normal Activity, May Not Drive, May Shower and Use Walker May shower in (days): 3 May resume sexual activity in: No Restrictions Ice area for (Minutes): 30 Weight Bearing Status: Weight bearing as tolerated Keep extremity elevated above heart level: Operative Extremity Dressing / Incision Call your doctor if your incision/area has: Continuous Slow Oozing, Sudden Increased Bleeding and Increased Redness Call your doctor if you observe: Fever of 101 or Higher Change Dressing in: leave in place till F/U Follow Up Care Please Follow Up With: Wicho Mendiola MD When: As scheduled Test Results: Test results from this visit will be discussed in further detail at your follow- up appointment, if applicable. Discharge Plan Admission Admit Date/Time: 06/25/22 12:38 Primary Reason for Your Visit: Left total knee arthroplasty Attending Provider: Wicho Mendiola Primary Care Provider: Rebecca Argueta Discharge Orders/Prescriptions Prescriptions: New acetaminophen 500 mg Tablet 1,000 mg PO Q8 30 Days Qty: 180 0RF aspirin 81 mg Tablet,Chewable 81 mg PO BIDCM 14 Days Qty: 28 0RF Rx Instructions: Patient will begin taking aspirin 81 mg 1 p.o. every 12 hours on July 11, 2022 for 2 weeks at the completion of her 2-week Xarelto course oxycodone 5 mg Tablet 5 - 10 mg PO Q4H PRN PRN (Reason: Pain Score 4-10) 7 Days Qty: 60 0RF Xarelto 10 mg Tablet 10 mg PO DINNER 14 Days Qty: 14 0RF Rx Instructions: Patient has history of postop DVT. Xarelto 1 p.o. daily x14 days, then patient will begin aspirin 81 mg 1 p.o. every 12 hours for 14 days sennosides-docusate sodium [Stool Softener-Stimulant Laxat] 8.6-50 mg Tablet 2 tab PO BID 14 Days Qty: 56 0RF Continued trazodone 100 mg tablet 100 mg PO QHS atorvastatin 10 mg tablet 10 mg PO QHS mirtazapine 30 MG tablet 1 tab PO QHS Label Comments: pantoprazole 40 MG tablet 40 mg PO BID pramipexole 0.25 MG tablet 1 mg PO QHS doxycycline hyclate 100 mg tablet 100 mg PO BID ascorbic acid (vitamin C) [Vitamin C] 500 mg Tablet 500 mg PO DAILY biotin 10,000 mcg Capsule 10,000 mcg PO DAILY zinc 50 mg Tablet 50 mg PO DAILY B-complex with vitamin C Tablet 1 tab PO DAILY [id number] 375-150-125 mg Tablet 1 tab PO DAILY cholecalciferol (vitamin D3) [Vitamin D3] 50 mcg (2,000 unit) Capsule 100 mcg PO DAILY Probiotic 100 billion cell Capsule 1 cap PO DAILY L-Arginine(alpha-ketoglutarat) 350 mg Tablet Extended Release 350 mg PO DAILY mecobalamin (vitamin B12) [B12 Active] 1,000 mcg Tablet,Chewable 1,000 mcg PO DAILY quercetin 500 mg Capsule 500 mg PO DAILY albuterol sulfate 90 mcg/actuation HFA aerosol inhaler 1 puff INHALATION DAILY PRN PRN (Reason: BREATHING) budesonide-formoterol [Symbicort] 80-4.5 mcg/actuation Hfa Aerosol Inhaler 2 puff INHALATION BID buspirone 10 mg Tablet 10 mg PO BID Other Ambulatory Orders: Chest PA and Lateral (Routine) Timeframe: [id number] Facility: [facility] - Location: [facility] Ordered By: Dr. Wicho Mendiola Referrals / Follow Up: Rebecca Argueta DO [Primary Care Provider] - Disposition Disposition (needs filled in before D/C Order can be placed): Home, Self Care
[2022-06-26] MEDS: Budesonide Respules 0.5 MG/2 ML AMPUL.NEB. INHALATION ×2 (07:53→07:54)
--- NOTE | 2022-06-26 09:40 | CASEMGMT ---
Addendum entered by Cara Kellogg 06/26/22 10:35: Received acceptance from [facility]. Pt updated. Original Note: RN BRIAN Assessment: Face to Face with pt for initial transition planning/care coordination assessment. CARI TORRES introduced self and role at [facility], pt voices understanding and consents to assessment. Pt is A/O x4 and answers all questions appropriately at this time. Pt sitting up in chair and just finished with PT. Care providers, pharmacy, and demographics verified/updated. Admitting Dx: Left total knee PCP:Kendall Specialists: ignacio Mendiola; Jd, opt; Indira, ENT Preferred Pharmacy: [facility] Insurance: [employer] [facility] Prescription Benefit: yes LNOK: Rosalba Cantu, dtr; Tree Nuno, Living Arrangements: Pt lives with in a split level home with 2 steps to enter without a rail. Pt reports she normally is I in ADL's and denies concerns at home. Transportation: Pt drives self and denies concerns with transportation. Pt will transport her to medical appts until she is able to drive again. DME/HHC/SNF:Pt has a shower chair, FWW, over the toilet handles and a wedge. [facility] Pt states she wants this agency again. Pt denies need for a list of HHC providers including quality and resource use data and consistent with the patient?s preferred geographic region, medical needs, and insurance network were provided from the [facility] Guide. Pt denies SNF stays. Pt states no concerns with going home at time of dc. Referral sent to [facility] via [facility] at this time. TC to [facility] Retail pharmacy, pt cost for xarelto is $21.93. Pt states no further concerns/needs. CM to follow. Advised pt to ask CM if any further question/concerns/needs arise, voices understanding. Pt Goal: Home with HHC Plan: Home with HHC, will await acceptance.
[2022-06-26] MEDS: busPIRone 5 MG Tablet 10 MG PO (10:40)
[2022-06-26] MEDS: Senna/Docusate Sodium 1 Tablet 2 TABLET PO (10:40)
[2022-06-26] MEDS: Doxycycline 100 MG CAPSULE PO (10:40)
[2022-06-26] MEDS: Pantoprazole Sodium 40 MG Tablet PO (10:40)
[2022-06-26 14:34] VITALS: BP 151/78; PULSE 71; RESP 16; TEMP 37; O2SAT 99
== END 2022-06-26 15:00 | disposition home health service (06) ==
LOC: SDC 15:42 → MS3 15:42
PROVIDERS: Anesthesiology; Admitting Provider Orthopaedic Surgery; PCP Internal Medicine; Referring Provider Orthopaedic Surgery; Visit Provider Orthopaedic Surgery
PROC: (CPT 27447; principal; 2022-06-25 09:35)
DX: M12.562 Traumatic arthropathy, left knee (principal); J45.909 Unspecified asthma, uncomplicated; Z86.16 Personal history of COVID-19; Z79.899 Other long term (current) drug therapy; Z79.51 Long term (current) use of inhaled steroids; F32.A Depression, unspecified; K21.9 Gastro-esophageal reflux disease without esophagitis; G47.33 Obstructive sleep apnea (adult) (pediatric); E78.00 Pure hypercholesterolemia, unspecified; F41.9 Anxiety disorder, unspecified; Z86.2 Personal history of diseases of the blood and blood-forming organs and certain disorders involving the immune mechanism; Z86.718 Personal history of other venous thrombosis and embolism; E66.9 Obesity, unspecified; Z68.36 Body mass index [BMI] 36.0-36.9, adult
CPT/HCPCS: 27447; 64447; 36415; 73560; 80048; 80076; 82962; 83735; 85027; 85610; 85730; 87081; 88305; 88311; 94640; 96365; 96366; 96375; 97110; 97116; 97162; 97166; 97535; 99218; 99251; C1776; J7120; G0378; G0463; J3475

== ENCOUNTER → 2022-07-03 | Outpatient (CLI) | payer MEDICARE, SELFPAY ==
--- NOTE | 2022-07-03 10:46 | VDLE_ITS ---
Reason For Study: Pain RIGHT LEFT CFV is compressible, spontaneous, phasic, GSV is normal. competent and demonstrates normal CFV is compressible, spontaneous, phasic, augmentation. competent, and demonstrates normal Procedure augmentation. This is a venous duplex using B-mode, color FV is compressible, spontaneous, phasic, flow and spectral Doppler. competent and demonstrates normal Exam performed in department. augmentation. A preliminary report was called and/or faxed POP V is compressible, spontaneous, phasic, to [facility]. competent and demonstrates normal augmentation. T/P Trunk is compressible. PTV is compressible. LT PerV is compressible. VL/Venous Duplex US, Unilateral Interpretation Summary There is no evidence of left lower extremity deep vein thrombosis. Left great s aphenous vein appears patent and compressible segmentally. Normal flow patterns right common femoral vein Ordering Physician: Wicho Mendiola Referring Physician: Rebecca Argueta D.O. Performed By: Jessica Bhat RVT
== END | disposition home or self-care (01) ==
LOC: CVS 10:45
PROVIDERS: PCP Internal Medicine; Visit Provider Orthopaedic Surgery
DX: M79.662 Pain in left lower leg (principal)
CPT/HCPCS: 93971

== ENCOUNTER → 2023-02-21 | Outpatient (CLI) | payer MEDICARE, SELFPAY ==
[2023-02-21 15:42] LABS: Ferritin 55 ng/mL (8-252)
== END | disposition home or self-care (01) ==
LOC: MTLAB 13:15
PROVIDERS: PCP Internal Medicine; Visit Provider Internal Medicine Pulmonary Disease
DX: G25.81 Restless legs syndrome (principal); E61.1 Iron deficiency
CPT/HCPCS: 36415; 82728

== ENCOUNTER → 2023-03-20 | Outpatient (CLI) | payer MEDICARE, SELFPAY ==
--- NOTE | 2023-03-20 12:06 | BI_ITS ---
MAMMOGRAPHY - BILATERAL SCREENING REASON FOR EXAM: Female, 78 years old. Routine annual screening examination. PERTINENT HISTORY: Non-contributory. TECHNIQUE: Digital bilateral breast rod (3D mammographic acquisition) in the CC and MLO projections. 2-D mediolateral oblique (MLO) and craniocaudad (CC) views of both breasts were obtained. CAD: Full Field Digital Mammography with Computer Added Detection was performed. COMPARISON: Comparison is made with prior study April 04, 2022 and December 22, 2020. FINDINGS: Breast Composition: There are scattered areas of fibroglandular density. There are no dominant masses or suspicious calcifications. Stable benign-appearing bilateral axillary lymph nodes. No other significant abnormalities are identified. There has been no significant change since the prior study. BI/SCRN MAMM (CAD)W/ROD BILAT IMPRESSION: Stable bilateral screening mammogram. Yearly follow-up mammogram recommended. (A) ASSESSMENT CATEGORY: BIRADS Category 2: Benign. A letter regarding these results will be sent to the patient by the facility within 30 days. Approximately 10% of breast cancers are not detected by mammography. A normal mammogram should not delay biopsy of a clinically suspicious abnormality. [id number] Electronically Signed: Eliazar Herzog MD at 13:09 EDT ,
--- NOTE | 2023-03-20 12:41 | ECHOD_ITS ---
Reason For Study: DYSPNEA Procedure This was a 2D Doppler, Color Flow transthoracic echocardiogram. Exam performed in department. Left Ventricle Normal LV size. Left ventricular systolic function is normal. The estimated ejection fraction is 60 %. Stage 1 diastolic dysfunction. No regional wall motion abnormalities noted. Right Ventricle Normal RV size. Normal systolic function. Atria Normal left atrium. Normal right atrium. Mitral Valve Normal mitral valve. Tricuspid Valve Normal tricuspid valve. Mild (1+) tricuspid valve insufficiency. Pulmonary artery systolic pressure is 28 mmHg. Aortic Valve Trisinus/trileaflet aortic valve. Mild focal aortic valve calcification. Mild (1+) aortic valve insufficiency. Pulmonic Valve Normal pulmonic valve. Great Vessels Normal aortic root. The pulmonary artery is normal size. Normal inferior vena cava. Pericardium/Pleural No pericardial effusion. MMode/2D Measurements & Calculations LVIDd: 4.0 cm IVSd: 0.90 cm LVOT diam: 1.9 cm LVIDs: 2.8 cm LVPWd: 1.1 cm LVOT area: 2.8 cm2 RVDd: 4.2 cm FS: 31.5 % Ao root diam: 3.6 cm LAV(MOD-bp): 70.9 ml LVAd ap4: 31.2 cm2 LAV(MOD-bp) Indexed: 35.2 ml/m2 LVLd ap4: 7.4 cm LAV(MOD-sp2): 68.0 ml EDV(MOD-sp4): 106.4 ml LAV(MOD-sp4): 71.3 ml EDV(sp4-el): 111.4 ml LVAs ap4: 16.8 cm2 LVLs ap4: 6.3 cm ESV(MOD-sp4): 37.0 ml ESV(sp4-el): 37.9 ml EF(MOD-sp4): 65.2 % EF(sp4-el): 65.9 % LVAd ap2: 27.4 cm2 SV(MOD-sp4): 69.4 ml SV(MOD-sp2): 55.3 ml LVLd ap2: 7.3 cm EDV(MOD-sp2): 83.1 ml EDV(sp2-el): 86.8 ml LVAs ap2: 14.0 cm2 LVLs ap2: 6.0 cm ESV(MOD-sp2): 27.8 ml ESV(sp2-el): 27.4 ml EF(MOD-sp2): 66.6 % SV(sp4-el): 73.4 ml LA dimension(2D): 4.3 cm LA A4 area: 22.9 cm2 RA A4 area: 15.6 cm2 TAPSE: 2.2 cm Time Measurements MV dec time: 0.24 sec Doppler Measurements & Calculations MV E max jorden: 79.4 cm/sec Lat Peak E' Jorden: 6.5 cm/sec Med Peak E' Jorden: 7.5 cm/sec MV A max jorden: 128.8 cm/sec E/E' lat: 12.3 E/E' med: 10.6 MV E/A: 0.62 Ao V2 max: 165.5 cm/sec AI max jorden: 400.3 cm/sec MV dec slope: 325.8 cm/sec2 Ao max P.0 mmHg AI max P.1 mmHg Ao V2 mean: 114.5 cm/sec Ao mean P.9 mmHg AI dec slope: 137.0 cm/sec2 Ao V2 VTI: 35.3 cm AI P1/2t: 855.9 msec AV (velocity ratio): 0.95 TRORIE(I,D): 2.7 cm2 TORRIE(V,D): 2.4 cm2 LV V1 max: 141.1 cm/sec SV(LVOT): 94.9 ml PA V2 max: 90.5 cm/sec LV V1 max P.0 mmHg PA max PG (full): 1.4 mmHg LV V1 mean P.7 mmHg LV V1 mean: 104.1 cm/sec LV V1 VTI: 33.7 cm TR max jorden: 245.2 cm/sec TR max P.1 mmHg ECHO/Echo Complete Interpretation Summary Normal LV size. Left ventricular systolic function is normal. The estimated ejection fraction is 60 %. Pulmonary artery systolic pressure is 28 mmHg. Stage 1 diastolic dysfunction. Mild (1+) aortic valve insufficiency. Ordering Physician: Chip Nunez Referring Physician: Rebecca Argueta D.O. Performed By: Magdalene Ibarra RDCS
== END | disposition home or self-care (01) ==
PROVIDERS: PCP Internal Medicine; Referring Provider Internal Medicine Pulmonary Disease; Visit Provider Internal Medicine
DX: Z12.31 Encounter for screening mammogram for malignant neoplasm of breast (principal); J45.30 Mild persistent asthma, uncomplicated; R06.02 Shortness of breath
CPT/HCPCS: 77063; 77067; 93306

== ENCOUNTER → 2023-04-24 | Outpatient (CLI) | payer MEDICARE, SELFPAY ==
--- NOTE | 2023-04-26 12:55 | STRESSREP ---
Stress Test Report Date: 04/24/2023 Procedure: Exercise tolerance test/imaging study Indications: Suspected CAD Consent: Per the patient Procedure: The patient exercised on a Sarmad protocol for 3 minutes and 30 seconds achieving a peak heart rate of 126 bpm (89% predicted maximal heart rate) with a peak blood pressure 172/98 mmHg and a peak MET capacity of 5.8 METs. The baseline ECG demonstrated normal sinus rhythm. The peak exercise ECG demonstrated no significant ischemic changes. EKG during recovery revealed no significant ischemic changes [There were no cardiac dysrhythmias pretest, during exercise, or recovery]. The functional capacity was considered normal for age. There was [no complaint of chest discomfort during exercise or recovery]. The examination was discontinued secondary to dyspnea. Impression: 1. Technically adequate (percent predicted maximal heart rate greater than 85%) exercise tolerance test 2. Stress test is negative for exercise-induced EKG changes of ischemia 3. The test test is negative for exercise-induced chest pain 4. Functional capacity is normal for age 5. Nuclear images pending Myocardial perfusion imaging study: Technique: The patient was injected with 14.1 mCi of technetium 99m Cardiolite and subsequently rest SPECT Cardiolite nuclear imaging was obtained in the horizontal long, vertical long, and short axis views. The patient exercised on a Sarmad protocol. Please see above for details. The patient was injected with 43.5 mCi of technetium 99m Cardiolite and subsequently stress SPECT Cardiolite nuclear imaging was obtained in the horizontal long, vertical long, and short axis views. A gated Cardiolite study at peak stress was obtained. Interpretation: Rest and stress SPECT Cardiolite nuclear imaging status post realignment, normalization, and attenuation correction, demonstrates no evidence of significant ischemia or infarction. The gated Cardiolite study demonstrates no significant regional wall motion abnormalities. The reported LVEF is 66%. Impression: 1. There is no evidence of significant ischemia or infarction. 2. The gated Cardiolite study reports an LVEF of 66%. This note was generated with [employer] software. It may contain incorrect words, spelling, and punctuation that were not noted in checking the note before signing.
== END | disposition home or self-care (01) ==
LOC: CVS 06:22
PROVIDERS: PCP Internal Medicine; Referring Provider Internal Medicine Pulmonary Disease; Visit Provider Internal Medicine Pulmonary Disease
DX: R06.00 Dyspnea, unspecified (principal)
CPT/HCPCS: 78452; 93017; A9500; A4216

== ENCOUNTER → 2024-05-12 | Outpatient (CLI) | payer MEDICARE, SELFPAY ==
--- NOTE | 2024-05-12 12:29 | BI_ITS ---
MAMMOGRAPHY - BILATERAL SCREENING REASON FOR EXAM: Female, 79 years old. Routine annual screening examination. PERTINENT HISTORY: Non-contributory. TECHNIQUE: Digital bilateral breast rod (3D mammographic acquisition) in the CC and MLO projections. 2-D mediolateral oblique (MLO) and craniocaudad (CC) views of both breasts were obtained. CAD: Full Field Digital Mammography with Computer Added Detection was performed. COMPARISON: Comparison is made with prior study of March 20, 2023 and April 04, 2022. FINDINGS: Breast Composition: There are scattered areas of fibroglandular density. There are no dominant masses or suspicious calcifications. No other significant abnormalities are identified. There has been no significant change since the prior study. BI/SCRN MAMM (CAD)W/ROD BILAT IMPRESSION: Stable bilateral screening mammogram. Yearly follow-up mammogram recommended. (A) ASSESSMENT CATEGORY: BIRADS Category 1: Negative. A letter regarding these results will be sent to the patient by the facility within 30 days. Approximately 10% of breast cancers are not detected by mammography. A normal mammogram should not delay biopsy of a clinically suspicious abnormality. [id number] Electronically Signed: Eliazar Herzog MD at 13:50 EST ,
--- NOTE | 2024-05-12 12:34 | BD_ITS ---
STUDY: DUAL ENERGY X-RAY ABSORPTIOMETRY / DXA REASON FOR EXAM: Female, 79 years old. Z780 -- postmenopausal TECHNIQUE: Bone Mineral Density (BMD) measurements of the left forearm and bilateral hips were obtained. COMPARISON: Comparison is made with prior study dated April 04, 2022. FINDINGS: Left Femur Total: g/cm2 (0.844) / T-score (-0.8) / Z-score (1.3) Left Femoral Neck: g/cm2 (0.524) / T-score (-2.9) / Z-score (-0.6) Right Femur Total: g/cm2 (0.892) / T-score (-0.4) / Z-score (1.7) Right Femoral Neck: g/cm2 (0.705) / T-score (-1.3) / Z-score (1.0) Left Forearm: g/cm2 (0.490) / T-score (-1.6) / Z-score (1.4) The T-Scores on the most recent prior examination were: Left Femur Total: which represents a worsening of 5%. Right Femur Total: which represents an improvement of 2%. BD/Dexa Bone Density Study IMPRESSION: The patient is considered osteoporotic as outlined below according to World Moncho Organization (WHO) criteria with a high fracture risk. There has been worsening of bone density since the previous examination. Reference Information: The T-score is the number of standard deviations above or below the standard which is normal for young adults at their peak bone mineral density. The World Health Organization (WHO) interprets the T-scores as follows: Above -1 Normal bone density Between -1 and -2.5 Osteopenia Equal to / or below -2.5 Osteoporosis As a practical clinical guideline, osteopenia may be graded as follows: Mild -1 through -1.5 Moderate -1.6 through -2.0 Severe -2.1 through -2.4 The Z-score is the number of standard deviations above or below age-matched controls. A Z-score of less than -1.5 would be considered abnormal. References: 1. NIH Osteoporosis and Related Bone Diseases www osteo.org 2. International Society for Clinical Densitometry www iscd.org 3. National Osteoporosis Foundation www nof.org Electronically Signed: Eliazar Herzog MD at 14:20 EST ,
== END | disposition home or self-care (01) ==
LOC: OPBD 12:27
PROVIDERS: PCP Internal Medicine; Referring Provider Internal Medicine; Visit Provider Internal Medicine
DX: Z12.31 Encounter for screening mammogram for malignant neoplasm of breast (principal); Z78.0 Asymptomatic menopausal state
CPT/HCPCS: 77063; 77067; 77080

== ENCOUNTER → 2024-06-22 | Outpatient (CLI) | payer MEDICARE, SELFPAY ==
--- NOTE | 2024-06-22 13:09 | ECHOD_ITS ---
Reason For Study: OTHER FORMS OF DYSPNEA Procedure This was a 2D Doppler, Color Flow transthoracic echocardiogram. Exam performed in department. Left Ventricle Normal LV size. Mild concentric left ventricular hypertrophy. Left ventricular systolic function is normal. The left ventricular ejection fraction is 60 %. No regional wall motion abnormalities noted. Right Ventricle Normal RV size. The right ventricle is normal in size, function, and thickness. Atria The left atrium is mildly enlarged. Normal right atrium. Mitral Valve There is mild to moderate mitral annular calcification. There is Severe focal posterior mitral annular calcification. Extension of the MAC with mobile component measuring 1cm by 0.7cm. Tricuspid Valve Normal tricuspid valve. Aortic Valve Trisinus/trileaflet aortic valve. Mild focal aortic valve calcification. Mild (1+) aortic valve insufficiency. Pulmonic Valve Normal pulmonic valve. Great Vessels Calcified aortic root. The pulmonary artery is normal size. Inferior vena cava collapse with respiration. Pericardium/Pleural No pericardial effusion. MMode/2D Measurements & Calculations LVIDd: 4.2 cm IVSd: 1.3 cm LVOT diam: 2.0 cm LVIDs: 3.3 cm LVPWd: 1.3 cm LVOT area: 3.0 cm2 RVDd: 3.6 cm FS: 21.2 % Ao root diam: 3.1 cm LAV(MOD-bp): 68.2 ml LVAd ap4: 29.3 cm2 LAV(MOD-bp) Indexed: 33.3 ml/m2 LVLd ap4: 7.6 cm LAV(MOD-sp2): 62.2 ml EDV(MOD-sp4): 92.1 ml LAV(MOD-sp4): 71.1 ml EDV(sp4-el): 95.4 ml LVAs ap4: 16.5 cm2 LVLs ap4: 6.5 cm ESV(MOD-sp4): 35.9 ml ESV(sp4-el): 35.8 ml EF(MOD-sp4): 61.0 % EF(sp4-el): 62.5 % SV(MOD-sp4): 56.1 ml SV(sp4-el): 59.6 ml LA A4 area: 23.1 cm2 SI(MOD-sp4): 27.4 ml/m2 LA dimension(2D): 4.5 cm RA A4 area: 10.4 cm2 Time Measurements MV dec time: 0.25 sec Doppler Measurements & Calculations MV E max jorden: 105.0 cm/sec Lat Peak E' Jorden: 6.1 cm/sec Med Peak E' Jorden: 7.9 cm/sec MV A max jorden: 99.0 cm/sec E/E' lat: 17.2 E/E' med: 13.2 MV E/A: 1.1 MV V2 max: 115.7 cm/sec Ao V2 max: 155.0 cm/sec MV max P.4 mmHg MV dec slope: 417.1 cm/sec2 Ao max P.6 mmHg MV V2 mean: 71.9 cm/sec Ao V2 mean: 100.0 cm/sec MV mean P.4 mmHg Ao mean P.8 mmHg MV V2 VTI: 48.0 cm Ao V2 VTI: 39.2 cm AV (velocity ratio): 0.90 MVA(VTI): 2.2 cm2 TORRIE(I,D): 2.7 cm2 TORRIE(V,D): 2.7 cm2 AI max jorden: 409.3 cm/sec LV V1 max: 138.7 cm/sec SV(LVOT): 106.6 ml AI max P.0 mmHg LV V1 max P.7 mmHg LV V1 mean P.6 mmHg AI dec slope: 153.6 cm/sec2 LV V1 mean: 100.5 cm/sec AI P1/2t: 780.6 msec LV V1 VTI: 35.3 cm PA V2 max: 77.5 cm/sec TR max jorden: 246.0 cm/sec PA V2 mean: 56.5 cm/sec TR max P.2 mmHg ECHO/Echo Complete Interpretation Summary Normal LV size. Left ventricular systolic function is normal. The left ventricular ejection fraction is 60 %. Extension of the MAC with mobile component measuring 1cm by 0.7cm Mild concentric left ventricular hypertrophy. Ordering Physician: Laura Martin Referring Physician: Laura Martin M.D. Performed By: Nehal Perkins RCS
== END | disposition home or self-care (01) ==
LOC: CVS 13:07
PROVIDERS: PCP Internal Medicine; Referring Provider Internal Medicine; Visit Provider Internal Medicine
DX: R06.09 Other forms of dyspnea (principal)
CPT/HCPCS: 93306

== ENCOUNTER → 2024-08-17 | Outpatient (CLI) | payer MEDICARE, SELFPAY ==
--- NOTE | 2024-08-19 12:38 | STRESSREP_ITS ---
Stress Test Report Date: 08/17/2024 Procedure: Pharmacologic stress nuclear imaging study Indications: Coronary artery disease Consent: Per the patient Procedure: The patient underwent pharmacologic (Regadenoson 0.4mg ) evaluation with a peak heart rate of 97 beats per minute (69%predicted maximal heart rate) and a peak blood pressure of 98/62 mmHg. The baseline ECG demonstrated sinus rhythm. The peak pharmacologic ECG demonstrated no ischemic changes. There were no cardiac dysrhythmias pretest, during pharmacologic infusion, or recovery. There was no complaint of chest discomfort during pharmacologic infusion or recovery. The patient was injected with 13.9 millicuries of technetium 99m Cardiolite and subsequently rest SPECT Cardiolite nuclear imaging was obtained in the horizontal long, vertical long, and short axis views. The patient underwent pharmacologic (Regadenoson) evaluation. The patient was injected with 43.2 millicuries of technetium 99m Cardiolite and subsequently stress SPECT Cardiolite nuclear imaging was obtained in the horizontal long, vertical long, and short axis views. A gated Cardiolite study at peak stress was obtained. The examination was stopped secondary to completion of protocol. Rest and stress SPECT Cardiolite nuclear imaging status post realignment, normalization, and attenuation correction demonstrate mildly reduced apical uptake in both stress and resting images. Likely representing apical thinning. There is end systolic thickening and brightening. The gated Cardiolite study demonstrates myocardial thickening and inward wall motion. The reported LVEF is 58%. Impression: 1. Pharmacologic (Regadenoson) evaluation 2. Peak pharmacologic ECG with no ischemic changes. 3. There were no cardiac dysrhythmias pretest, during pharmacologic infusion, or recovery. 5. Rest and stress SPECT Cardiolite nuclear imaging demonstrate relative uniform tracer uptake and myocardial perfusion appearing within normal limits. 6. The gated Cardiolite study reports an LVEF of 58%. This note was generated with [employer] software. It may contain incorrect words, spelling, and punctuation that were not noted in checking the note before signing.
== END | disposition home or self-care (01) ==
PROVIDERS: PCP Internal Medicine; Referring Provider Internal Medicine Cardiovascular Disease; Visit Provider Internal Medicine Cardiovascular Disease
DX: R93.89 Abnormal findings on diagnostic imaging of other specified body structures (principal); I25.10 Atherosclerotic heart disease of native coronary artery without angina pectoris; R06.09 Other forms of dyspnea; I10 Essential (primary) hypertension; I49.3 Ventricular premature depolarization
CPT/HCPCS: 78452; 93017; A9500; A4216; J2785

== ENCOUNTER → 2025-03-09 | Outpatient (CLI) | payer MEDICARE, SELFPAY ==
[2025-03-09 09:41] LABS: Mucous, Urine 0 SEEN /hpf (<or=2+); Red Blood Cells-Urine 0 SEEN /hpf (0-5)
[2025-03-09 12:28] LABS: Color, Urine Yellow (Yellow); Glucose, Dipstick 1000 mg/dl (Normal); Ketone-Dipstick Negative (Negative); Leukocyte Esterase-Dipstick 100 /ul (Negative); Nitrite-Dipstick Negative (Negative); Occult Blood-Urine Negative /ul (Negative); Protein-Dipstick 15 mg/dl (Negative); Specific Gravity, Urine 1.010 (1.002-1.030); Urine Bilirubin Dipstick Negative (Negative)
[2025-03-09 12:39] LABS: Hematocrit 31.2 % (37-47); Hemoglobin 10.4 g/dL (12.0-15.0); Immature Granulocytes Count 0.010 X10^3/uL (0.0-0.0); Mean Corp Hgb Conc 33.3 g/dL (32-36); Mean Corpuscular Volume 92.3 fL (81-99); Mean Platelet Vol. 10.8 fl (6.2-12.0); NRBC Flagged by Analyzer 0 % (0-5); Platelet Count 149 K/mm3 (150-450); RBC Distribution Width CV 13.4 % (11.6-14.6); RBC Distribution Width SD 45.2 fl (35.1-43.9); Red Blood Count 3.38 M/mm3 (4.2-5.4); White Blood Count 3.7 K/mm3 (4.4-11.0)
[2025-03-09 12:43] LABS: Squamous Epithelial Cells - UA 0-5 SEEN /hpf (5-10)
[2025-03-09 13:55] LABS: AST(SGOT) 29 U/L (<=31); Alanine Aminotransfer ALT/SGPT 19 U/L (<=34); Albumin, Serum 4.5 g/dL (3.4-4.8); Alkaline Phosphatase 104 U/L (35-104); Anion Gap 14 (5-15); BUN 28 mg/dL (4-19); BUN/Creat Ratio 21.4 RATIO (10-20); Calcium,Total 9.5 mg/dL (7.6-11.0); Carbon Dioxide 21.3 mmol/L (21.0-32.0); Chloride 102 mmol/L (98-108); Cholesterol 164 mg/dL (<=200); Globulin 2.9 g/dL (2.2-4.2); Glucose 94 mg/dL (70-99); Low Density Lipoprotein Calc. 79 mg/dL; Potassium 4.1 mmol/L (3.3-5.1); Triglycerides 68 mg/dL; Very Low Density Lipoprotein 14 mg/dL (5-40); cholesterol:hdl ratio screen 2.31
[2025-03-09 15:04] LABS: Creatinine, Urine (random) 34.90 mg/dL (28.00-217.00); Microalbumin,Random Urine < 12.0 mg/L (<20 mg/L)
== END | disposition home or self-care (01) ==
LOC: MTLAB 09:32
PROVIDERS: PCP Internal Medicine; Referring Provider Internal Medicine; Visit Provider Internal Medicine
DX: I10 Essential (primary) hypertension (principal); R73.09 Other abnormal glucose; E78.49 Other hyperlipidemia
CPT/HCPCS: 36415; 80053; 80061; 81001; 82043; 82570; 83036; 84443; 85025

== ENCOUNTER → 2025-06-29 | Outpatient (CLI) | payer MEDICARE, SELFPAY ==
--- NOTE | 2025-06-29 12:45 | BI_ITS ---
EXAM: SCRN MAMM (CAD)W/ROD BILAT DATE: 06/29/2025 CLINICAL HISTORY: F, Age 80 y/o , SCRN MAMM (CAD)W/ROD BILAT TECHNIQUE: Procedure Code: [id number] Modality: MG Procedure: SCRN MAMM (CAD)W/ROD BILAT COMPARISON: Prior exam(s) were compared FINDINGS: TISSUE DENSITY: There are scattered areas of fibroglandular density. Bilateral Breast Mammographic Findings: No significant masses, calcifications or other abnormalities are identified. BI/SCRN MAMM (CAD)W/ROD BILAT IMPRESSION: No mammographic evidence of malignancy. OVERALL FINAL ASSESSMENT BI-RADS 1: NEGATIVE. RECOMMENDATION: Routine annual follow-up in 1 Year Additional Recommendation none A letter with findings and recommendations will be mailed to the patient. Reading Location: [id number]
== END | disposition home or self-care (01) ==
PROVIDERS: PCP Internal Medicine; Referring Provider Internal Medicine; Visit Provider Internal Medicine
DX: Z12.31 Encounter for screening mammogram for malignant neoplasm of breast (principal)
CPT/HCPCS: 77063; 77067